=== PATIENT | female | born 1945 | race Caucasian/White ===

== ENCOUNTER 2024-12-05 19:35 | Emergency (ER) | payer MEDICARE, SELFPAY ==
[2024-12-05 19:37] VITALS: BP 181/71; PULSE 65; RESP 16; TEMP 36.4; O2SAT 97; BMI 37.1
--- NOTE | 2024-12-05 20:37 | ECG_ITS ---
[facility] Test Date: 2024-12-05 Pat Name: Mila Hernández Department: Room: Gender: Female Patient Sitter: : 1945 Requested By: Brii Carter Order Number: [id number] Chelsie MD: Sherri Benítez M.D. Measurements Intervals [place] Rate: 58 P: 46 DE: 173 QRS: -4 QRSD: 88 T: 56 QT: 430 QTc: 423 Interpretive Statements SINUS BRADYCARDIA WITH FREQUENT SUPRAVENTRICULAR PREMATURE COMPLEXES SEPTAL MYOCARDIAL INFARCTION , OF INDETERMINATE AGE [40+ ms Q WAVE IN V1/V2] No previous ECG available for comparison Electronically Signed On 12-06-2024 16:34:30 CDT by Sherri Benítez M.D. [email or web address]
== END 2024-12-05 20:45 | disposition left against medical advice (07) ==
PROVIDERS: Emergency Provider Family Medicine
DX: Z53.21 Procedure and treatment not carried out due to patient leaving prior to being seen by health care provider (principal)
CPT/HCPCS: 93005

== ENCOUNTER 2025-01-12 12:52 | Emergency (ER) | payer MEDICARE, SELFPAY ==
--- OUTSIDE RECORDS SUMMARY | 2025-01-12 12:56 | XMS_ITS | Clinical Summary ---
Author Organization [facility] Address [address] Herrera: Epic Prelude ADT [place] [id number] Care Team Providers Care Nurse Ortho Name Role Phone Unavailable Primary Care Provider Unavailabl e Family History Medical History Relation Name Comments Healthy Daughter 1 Healthy Daughter 2 Hypertension Father Lung Cancer Father Stroke Father Colon Cancer Maternal Aunt Cancer Maternal Grandfather Cancer Maternal Grandmother cervica l Colon Cancer Maternal Grandmother Heart Disease Mother Respiratory Disease Mother Unknown Paternal Grandfather Diabetes Paternal Grandmother Hypertension Sister 1 Healthy Son Relation Name Status Comments Daughter 1 Alive Daughter 2 Alive Father Maternal Aunt Maternal Grandfather Maternal Grandmother Mother Paternal Grandfather Paternal Grandmother Sister 1 Alive Sister 2 Alive Son Alive Social History Tobacco Use Types Packs/Day Years Used Date Smoking Tobacco: Never Smokeless Tobacco: Never Alcohol Use Standard Drinks/Week Comments Yes 5 (1 standard drink = 0.6 oz pur e alcohol) Comments Unknown Sex and Gender Information Value Date Recorded Sex Assigned at Not on file Legal Sex Female 12:19 AM 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 Gender Identity Not on file Sexual Orientation Not on file Last Filed Vital Signs Vital Sign Reading Time Taken Comments Blood Pressure 130/80 08/24/2018 9:59 AM 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 Pulse 67 08/24/2018 9:59 AM 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 Temperature 36.7 C (98 F) 08/24/2018 9:59 AM 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 Respiratory Rate 20 04/26/2018 10:12 AM CDT Oxygen Saturation - - Inhaled Oxygen Concentration - - Weight 86.2 kg (190 lb) 08/24/2018 9:59 AM 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 Height 152.4 cm (5') 08/24/2018 9:59 AM 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 Body Mass Index 37.11 08/24/2018 9:59 AM 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 Plan of Treatment Health Maintenance Due Date Last Done Comments DTAP/TDAP/TD VACCINES (1 - Tdap) 1965 PNEUMOCOCCAL VACCINE 50+ YEA RS (1 of 1 - PCV) 1996 ZOSTER VACCINE (1 of 2) 1996 RSV VACCINE (60+ or ) (1 - 1-dose 75+ series) 2021 OSTEOPOROSIS SCREENING 09/08/2021 7, 09/08/2016, 04/06/2015, Additional history exists INFLUENZA VACCINE (#1) 2024 COLORECTAL SCREENING Discontinued 03/21/2017, 03/21/2017, 03/20/2012, Additional history exists Colorectal Cancer Screening Discontinued FIT-DNA Q 3 years Discontinued FIT/FOBT Q 1 year Discontinued Flex Sig/CT Colonography Q 5 years Discontinued Medical Devices Implanted Type 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 Shelf Expiration Date Model / Serial / Lot Capsule Ph Testing Pratt [id number] - [id number] Implanted:Qty: 1 on 03/21/2017 by Jose G Man MD Other [employer] 12/19/2017 [id number] / / [id number] Description:ID# [id number] Procedures Procedure Name Priority Date/Time Associated Diagnosis Comments ENDOSCOPY, COLON, SCREENING 03/21/2017 12:00 AM CDT XR DEXA BONE DENSITY AXIAL 1 OR MORE SITES Routine 09/08/2016 2:14 PM 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 Asymptomatic menopausal state Screening for osteoporosis from Last 3 Months or Most Recently Relevant to Health Maintenance Results * ENDOSCOPY, COLON, SCREENING (03/21/2017 12:00 AM CDT) Jose G Man MD GI PROCEDURE ORDERABLES Edited Result - Final * XR DEXA BONE DENSITY AXIAL 1 OR MORE SITES (09/08/2016 2:14 PM 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) Anatomical Region Laterality Modality Other Narrative 09/08/2016 2:18 PM 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 PROCEDURE: XR DEXA BONE DENSITY AXIAL 1 OR MORE SITES REASON FOR STUDY: Asymptomatic menopausal state, Screening for osteoporosis PROCEDURE DATE: 09/08/2016 2:14 PM FINDINGS: The lumbar spine bone mineral density from L1-L4 is 1.286 with a T-score of 2.2 and a Z-score of 4.3. This is consistent with normal bone mineral density. Proximal femur bone mineral density total is 1.050 with a T-score 0.9 and a Z-score 2.4. This is consistent with normal bone mineral density. Femoral neck bone mineral density is 0.806 with a T-score of -0.4 and a Z-score of 1.4. The World Health Organization FRAX score sheet shows a T-score of -0.4 with the ten-year probability of major osteoporotic fracture at 11% and a hip fracture of 0.7%. The [place] National Osteoporosis Foundation guidelines recommend offering treatment choices to anyone with low bone density also called osteopenia whose FRAX score for hip fractures is 3% or greater or other bone fractures greater than 20% Procedure Note Kaden Peter MD - 09/09/2021 PROCEDURE: XR DEXA BONE DENSITY AXIAL 1 OR MORE SITES REASON FOR STUDY: Asymptomatic menopausal state, Screening for osteoporosis PROCEDURE DATE: 09/08/2016 2:14 PM FINDINGS: The lumbar spine bone mineral density from L1-L4 is 1.286 with a T-score of 2.2 and a Z-score of 4.3. This is consistent with normal bone mineral density. Proximal femur bone mineral density total is 1.050 with a T-score 0.9 and a Z-score 2.4. This is consistent with normal bone mineral density. Femoral neck bone mineral density is 0.806 with a T-score of -0.4 and a Z-score of 1.4. The World Health Organization FRAX score sheet shows a T-score of -0.4 with the ten-year probability of major osteoporotic fracture at 11% and a hip fracture of 0.7%. The US National Osteoporosis Foundation guidelines recommend offering treatment choices to anyone with low bone density also called osteopenia whose FRAX score for hip fractures is 3% or greater or other bone fractures greater than 20% us Danii Cadet NP DIAGNOSTIC IMAGING ORDERAB LES Final Result from Last 3 Months or Most Recently Relevant to Health Maintenance
[2025-01-12 12:57] VITALS: BP 130/80; PULSE 72; TEMP 36.4; O2SAT 98; BMI 37.8
--- NOTE | 2025-01-12 13:46 | W.ED.FEMALGU ---
HPI - Female Genitourinary General: Chief complaint: Urogenital-Female Stated complaint: urinary Time Seen by Provider: 01/12/25 13:22 History of Present Illness: Chief complaint is blood in the urine and urinary burning and frequency. Patient had urinary symptoms about 10 days ago and was seen in urgent care and had a urinalysis showing UTI and started on Macrobid. She finished the Macrobid about 2 days ago. She states that she still has some mild burning with urination towards the end of the Macrobid and then after running out of the Macrobid she has had some increased burning and frequency of urination again and she has developed some right flank pain. No fever. No headache or chest pain or shortness of breath that is new for her. No vomiting. No abdominal pain. No numbness or weakness in her legs. She has a history of congestive heart failure and always has some shortness of breath. This morning she had some blood in her urine so they decided come get checked out again Related Data Previous Rx's ?Medication ?Instructions ?Recorded cefdinir 300 mg capsule 300 mg PO BID 10 days #20 caps 01/12/25 Allergies Allergy/AdvReac Type Severity Reaction Status Date / Time Penicillins Allergy Unknown Verified 01/12/25 13:03 Physical Exam Narrative: EXAM NARRATIVE: Alert talkative no acute distress. Neck is supple. Moist mucous membranes. No rash on exposed areas. Normal conjunctiva. Pupils are equally reactive. Lung sounds are clear normal respiratory pattern. Heart regular rhythm. Abdomen soft nontender. No CVA tenderness. Negative for tenderness over the vertebral bodies of the back. She moves freely with no apparent pain with movement. She has intact motor and sensation in her legs. Speech is clear. She is alert and oriented x 4. Course Vital Signs: Vital signs: Vital Signs Temperature 97.6 F 01/12/25 12:57 Pulse Rate 72 01/12/25 12:57 Blood Pressure 130/80 01/12/25 12:57 Pulse Oximetry 98 01/12/25 12:57 Oxygen Delivery Me thod Room Air 01/12/25 12:57 MDM - Female Medical Decision Making Patient presents nontoxic-appearing talkative with some continued burning and frequency of urination and some blood in her urine this morning. She does have some right flank pain that is developed over the last few days. She was on Macrobid for an E. coli UTI. The daughter called the urgent care where she had her urinalysis and they reported the results to me over the phone that she had E. coli that was sensitive to everything except for Cipro and Levaquin. I advised patient we will get repeat urinalysis. Her Macrobid may have not been adequate to eliminate the infection. Will get a CT scan to evaluate for obstructive stone and check CBC CMP and urinalysis. Not suggestive of dissection. Not suggestive of AAA. She had no abdominal tenderness and negative Nelson's and not suggestive of acute cholecystitis or biliary colic. UTI is most probable cause. History is obtained from the patient and from the daughter. The daughter states she does have a history of kidney stones. Patient's creatinine is elevated. The patient tells me that her creatinine normally runs high. The patient's white count was normal. BUN is also elevated consistent with dehydration. Bicarb also low consistent dehydration. I advised adequate oral intake. She has a history of CHF so will need close balance of adequate hydration. Urinalysis consistent with significant UTI. CT ab pelvis without contrast showed bilateral renal lesions which could represent cancer and I discussed with the patient and daughter the importance of follow-up for cancer screening and further testing. Patient has a history of unknown reaction which she thinks was a rash to penicillin long time ago in the past. She is not aware of any issue with cephalosporins. I advised her balance risk and benefit and alternative treatment options. Will prescribe cefdinir cautiously with close outpatient follow-up and return instructions. Will give her a dose here. Advised limits of ED evaluation and signs symptoms of worsening to watch and return for. Of note patient daughter mentioned that she had a history of a blood clot in the past and used to be on anticoagulation when I was asking them about blood thinners. She states that she had stopped taking it. I advised the importance of doing this with her doctor and close follow-up to discuss this with your doctor. Patient states she has no chest pain and no new shortness of breath or symptoms that she has not had chronically and does not suspect any new trouble breathing or symptoms to suggest acute PE. Patient states she is not currently taking her furosemide. She has been traveling and had not had much to drink the last few days because she does not want to urinate a lot when she is traveling. I advised the importance of adequate oral hydration. She is not vomiting feels comfortable with continued oral hydration outpatient. I advised contacting her doctor to recheck her kidney function promptly and advised signs of allergic reaction or dehydration or worsening to watch and return for. Lab Data 01/12/25 13:53 01/12/25 13:53 Radiology Impressions Abdomen/Pelvis CT 01/12/25 13:54 IMPRESSION: 1. No obstructive uropathy. No stones. 2. 11 cm left upper pole renal cyst is benign but may be symptomatic. 3. 16 mm intermediate density right renal lesion. 15 mm intermediate density left renal lesion. Complicated cyst versus solid neoplasm. Recommend non-emergent MRI without and with contrast or non-emergent CT without and with contrast. MRI is preferred for masses under 1.5 cm. 4. Incidental findings above. COMMENTS: Consistent with the [place] [employer]'s Incidental Findings Committee white paper (J Am Kemal Radiol 2018): Any incidental renal lesion less than 1 cm or classified as too small to characterize, or any incidental cystic renal lesion characterized as simple-appearing, is likely benign. No follow-up imaging is recommended for these lesions per consensus recommendations based on imaging criteria. Laboratory Results WBC 8.01 10^3/uL (3.29-11.43) 01/12/25 13:53 RBC 4.51 10^6/uL (3.85-5.65) 01/12/25 13:53 Hgb 12.30 g/dL (11.27-16.99) 01/12/25 13:53 Hct 39.3 % (36-47) 01/12/25 13:53 MCV 87.1 fl (85-98) 01/12/25 13:53 MCH 27.3 pg (27-33) 01/12/25 13:53 MCHC 31.3 g/dL (30-55) 01/12/25 13:53 RDW 17.9 % (12.1-15.1) H 01/12/25 13:53 Plt Count 212 10^3/cmm (157-399) 01/12/25 13:53 MPV 9.4 fL (7.4-10.4) 01/12/25 13:53 Neut % (Auto) 81.3 % 01/12/25 13:53 Lymph % (Auto) 6.4 % 01/12/25 13:53 [place] % (Auto) 7.0 % 01/12/25 13:53 Eos % (Auto) 4.0 % 01/12/25 13:53 Baso % (Auto) 0.9 % 01/12/25 13:53 Neut # (Auto) 6.52 10^3/uL (1.8-7.7) 01/12/25 13:53 Lymph # (Auto) 0.5 10^3/uL (0.8-4.8) L 01/12/25 13:53 [place] # (Auto) 0.6 10^3/uL (0.2-0.9) 01/12/25 13:53 Eos # (Auto) 0.3 10^3/uL (0.0-0.8) 01/12/25 13:53 Baso # (Auto) 0.1 10^3/uL (0.0-0.1) 01/12/25 13:53 Nucleated RBC % (auto) 0 % 01/12/25 13:53 Nucleated RBCs # 0.0 /100WBC 01/12/25 13:53 Sodium 137 mmol/L (136-145) 01/12/25 13:53 Potassium 4.6 mmol/L (3.5-5.1) 01/12/25 13:53 Chloride 105 mmol/L (98-107) 01/12/25 13:53 Carbon Dioxide 18 mmol/L (22-29) L 01/12/25 13:53 Anion Gap 18.6 (5-19) 01/12/25 13:53 BUN 39 mg/dL (8-23) H 01/12/25 13:53 Creatinine 1.7 mg/dL (0.5-0.9) H 01/12/25 13:53 GFR Calculation Not Reportable 01/12/25 13:53 Glucose 94 mg/dL (65-115) 01/12/25 13:53 Calculated Osmolality 293 mOsm/kg (285-295) 01/12/25 13:53 Calcium 9.1 mg/dL (8.5-10.5) 01/12/25 13:53 Total Bilirubin 0.3 mg/dL (0.15-1.2) 01/12/25 13:53 AST 12 U/L (0-32) 01/12/25 13:53 ALT 7 U/L (0-33) 01/12/25 13:53 Alkaline Phosphatase 88 U/L (35-105) 01/12/25 13:53 Total Protein 6.6 g/dL (6.6-8.7) 01/12/25 13:53 Albumin 3.6 g/dL (3.5-5.2) 01/12/25 13:53 Globulin 3.0 g/dL (1.3-4.6) 01/12/25 13:53 Lipase 57 U/L (13-60) 01/12/25 13:53 Urine Color Red (Yellow) A 01/12/25 13:47 Urine Appearance Turbid (CLEAR) A 01/12/25 13:47 Urine pH 5.5 (5-7) 01/12/25 13:47 Ur Specific [place] 1.019 (1.005-1.030) 01/12/25 13:47 Urine Protein 3+ (Negative) A 01/12/25 13:47 Urine Glucose (UA) Negative (Normal) 01/12/25 13:47 Urine Ketones Negative (Negative) 01/12/25 13:47 Urine Blood 3+ (Negative) A 01/12/25 13:47 Urine Nitrate Positive (Negative) A 01/12/25 13:47 Urine Bilirubin 1+ (Negative) H 01/12/25 13:47 Urine Urobilinogen 1.0 mg/dL (Negative) 01/12/25 13:47 Ur Leukocyte Esterase 3+ (Negative) A 01/12/25 13:47 Urine RBC >100 /hpf (0-2) H 01/12/25 13:47 Urine WBC >100 /hpf (0-5) H 01/12/25 13:47 Ur Squamous Epith Cells 6-10 /hpf (0-5) 01/12/25 13:47 Amorphous Sediment Not Reportable 01/12/25 13:47 Urine Bacteria 4+ /hpf (NONE) H 01/12/25 13:47 Hyaline Casts 1.45 /lpf 01/12/25 13:47 All radiology interpretation(s) finalized by discharge Discharge Plan Discharge Patient Disposition: Home Clinical Impression: Urinary tract infection Condition: Stable Prescriptions: New cefdinir 300 mg capsule 300 mg PO BID 10 Days Qty: 20 0RF Discharge Orders: Discharge ED (Routine); Ordered 01/12/25 Ordered By: Nathaniel Rios Activity Restrictions/Additional Instructions: Follow-up on your test results with your doctor including the renal lesions for cancer screening to evaluate for cancer on your kidney. Follow-up on your kidney function test and other lab results with your doctor. Make sure to drink plenty of fluid. Please come back if weakness in your arms or legs, fever, vomiting, getting worse instead of better, any concerns. Make sure to follow-up on all your test results with your doctor. Please recheck with your doctor this coming week. Print Language: Syrian Coding Level of Care Code ED Per Diem Physical Therapist for Keith Garza
--- NOTE | 2025-01-12 13:54 | CTR_ITS ---
PROCEDURE INFORMATION: Exam: CT Abdomen And Pelvis Without Contrast Exam date and time: 01/12/2025 2:13 PM Age: 79 years old Clinical indication: Abdominal pain; Flank; Right; Prior surgery; Surgery date: 6+ months; Surgery type: Appy; Additional info: Right flank pain TECHNIQUE: Imaging protocol: Computed tomography of the abdomen and pelvis without contrast. Radiation optimization: All CT scans at this facility use at least one of these dose optimization techniques: automated exposure control; mA and/or kV adjustment per patient size (includes targeted exams where dose is matched to clinical indication); or iterative reconstruction. COMPARISON: No relevant prior studies available. RADIATION DOSE METRICS: Total DLP (mGy-cm): 846.14 FINDINGS: Lungs: Lung bases are clear. Diaphragm: There is a moderate size sliding-type hiatal hernia. Liver: There are simple cysts in the liver measuring up to 2.3 cm. No liver mass. Gallbladder and biliary ducts: The gallbladder is normal. There is no biliary dilation. Pancreas: There is mild atrophy of the pancreas. Spleen: The spleen is unremarkable. Adrenal glands: The adrenal glands are unremarkable. Kidneys and ureters: There is no hydronephrosis or stones on the right. There is an intermediate density 17 mm nodule or complicated cyst in the right kidney on axial series 4, image 46. There is a simple cyst exophytic from the upper pole of the left kidney measuring 11.1 x 8.0 cm there is a 15 mm intermediate density left renal lesion visible on axial series 4, image 47. There are multiple simple parapelvic cysts in the left kidney. There is no hydronephrosis or stones on the left. There are small simple parapelvic cyst in the right kidney. Stomach and bowel: The stomach is nondistended, limiting assessment of wall thickness. The small bowel is nondilated. There is pancolonic diverticulosis which is mild proximally and severe distally. There is no sign of diverticulitis. Appendix: The appendix is not visible. Intraperitoneal space: There is no free air or significant intraperitoneal free fluid. Vasculature: There is mild aortic atherosclerotic disease. Lymph nodes: There is no lymphadenopathy in the retroperitoneum, mesentery, pelvis or inguinal regions. Urinary bladder: The urinary bladder is unremarkable. Reproductive: The uterus is unremarkable. There is no adnexal mass or large cyst. Bones/joints: There is moderate degenerative disease in the lumbar spine. The pelvis and hips are unremarkable. Soft tissues: The abdominal wall is intact. Mild diffuse atrophy of the pelvic musculature. CT/CT abdomen pelvis wo con [id number] IMPRESSION: 1. No obstructive uropathy. No stones. 2. 11 cm left upper pole renal cyst is benign but may be symptomatic. 3. 16 mm intermediate density right renal lesion. 15 mm intermediate density left renal lesion. Complicated cyst versus solid neoplasm. Recommend non-emergent MRI without and with contrast or non-emergent CT without and with contrast. MRI is preferred for masses under 1.5 cm. 4. Incidental findings above. COMMENTS: Consistent with the [place] [employer]'s Incidental Findings Committee white paper (J Am Kemal Radiol 2018): Any incidental renal lesion less than 1 cm or classified as too small to characterize, or any incidental cystic renal lesion characterized as simple-appearing, is likely benign. No follow-up imaging is recommended for these lesions per consensus recommendations based on imaging criteria.
[2025-01-12 14:03] LABS: Basophils # 0.1 10^3/uL (0.0-0.1); Basophils % 0.9 %; Eosinophils # 0.3 10^3/uL (0.0-0.8); Hematocrit 39.3 % (36-47); Lymphocytes # 0.5 10^3/uL (0.8-4.8); Lymphocytes % 6.4 %; Mean Corpuscular HGB Conc 31.3 g/dL (30-55); Mean Corpuscular Hemoglobin 27.3 pg (27-33); Mean Corpuscular Volume 87.1 fl (85-98); Mean Platelet Volume 9.4 fL (7.4-10.4); Monocytes # 0.6 10^3/uL (0.2-0.9); Neutrophils # 6.52 10^3/uL (1.8-7.7); Neutrophils % 81.3 %; Nucleated Red Blood Cells % 0 %; Platelet Count 212 10^3/cmm (157-399); Red Blood Count 4.51 10^6/uL (3.85-5.65); Red Cell Distribution Width 17.9 % (12.1-15.1); White Blood Count 8.01 10^3/uL (3.29-11.43)
[2025-01-12 14:06] LABS: Bilirubin Urine 1+ (Negative); Blood Urine 3+ (Negative); Glucose Urine UA Negative (Normal); Ketones Urine Negative (Negative); Leukocyte Esterase Urine 3+ (Negative); Nitrate Urine Positive (Negative); Protein Urine 3+ (Negative); Specific Gravity, Urine 1.019 (1.005-1.030); Urine Appearance Turbid (CLEAR); pH Urine 5.5 (5-7)
[2025-01-12 14:11] LABS: Add Urine Microscopic? YES; Bacteria Urine 4+ /hpf; Hyaline Casts Urine 1.45 /lpf; RBC Urine >100 /hpf (0-2); WBC Urine >100 /hpf (0-5)
[2025-01-12 14:23] LABS: UA Slide Review UA Slide Review Perf; Urine Color Red (Yellow)
[2025-01-12 14:24] LABS: Add Urine Culture? Yes
[2025-01-12 14:45] LABS: Alanine Aminotransferase 7 U/L (0-33); Albumin Level 3.6 g/dL (3.5-5.2); Alkaline Phosphatase 88 U/L (35-105); Anion Gap 18.6 (5-19); Aspartate Amino Transferase 12 U/L (0-32); Blood Urea Nitrogen 39 mg/dL (8-23); Calcium 9.1 mg/dL (8.5-10.5); Carbon Dioxide 18 mmol/L (22-29); Chloride 105 mmol/L (98-107); Glucose 94 mg/dL (65-115); Lipase 57 U/L (13-60); Osmolality Calculated 293 mOsm/kg (285-295); Potassium 4.6 mmol/L (3.5-5.1); Sodium 137 mmol/L (136-145); Total Bilirubin 0.3 mg/dL (0.15-1.2); Total Protein 6.6 g/dL (6.6-8.7)
[2025-01-12 16:12] VITALS: BP 114/69; PULSE 51; O2SAT 99
== END 2025-01-12 16:14 | disposition home or self-care (01) ==
PROVIDERS: Emergency Provider Emergency Medicine
DX: N39.0 Urinary tract infection, site not specified (principal)
CPT/HCPCS: 74176; 80053; 81001; 83690; 85025; 87077; 87086; 87186; 99284

== ENCOUNTER → 2025-01-16 13:48 | Outpatient (BNVA) | payer MEDICARE, SELFPAY | PROVIDERS: Visit Provider Internal Medicine | DX: I11.0 Hypertensive heart disease with heart failure (principal); I50.20 Unspecified systolic (congestive) heart failure; E78.5 Hyperlipidemia, unspecified; R07.9 Chest pain, unspecified; R06.02 Shortness of breath | CPT/HCPCS: 93005; 99204 ==

== ENCOUNTER 2025-02-18 09:46 | Outpatient (CLI) | payer MEDICARE, SELFPAY ==
--- NOTE | 2025-02-18 10:00 | USCV_ITS ---
Mila Hernández Age: 79 Gender: F : 1945 Exam Date: 02/18/2025 10:20 Ordering Phys: Henry Calix M.D ([email or web address]) Technologist: MELLY [place] [facility] [place]: SoB BP: 128 / 78 HR: 56 Rhythm: Sinus Technical Quality: Adequate MEASUREMENTS (Male / Female) Normal Values 2D ECHO LV Diastolic Diameter PLAX 4.6 cm 4.2 - 5.9 / 3.9 - 5.3 cm IVS Diastolic Thickness 1.1 cm 0.6 - 1.0 / 0.6 - 0.9 cm IVS Systolic Thickness 1.4 cm LVPW Diastolic Thickness 1.3 cm 0.6 - 1.0 / 0.6 - 0.9 cm LVPW Systolic Thickness 1.8 cm LVOT Diameter 2.0 cm LV Ejection Fraction 2D Teich 57.9 % LV Ejection Fraction MOD 4C 64.7 % LV Ejection Fraction MOD 2C 63.5 % LV Ejection Fraction 2C AL 67.0 % LA Diameter 3.5 cm RA Systolic Volume 4C AL 31.1 ml RA Systolic Volume 4C MOD 30.1 ml LA Sys Volume AL 49.9 cm cubed LA Sys Volume Index AL 25.8 cm cubed/m squared Aorta at Sinotubular Diameter 2.6 cm M-MODE LA Ao Ratio MM 1.2 AV Cusp Separation MM 1.6 cm DOPPLER AV Peak Velocity 127.0 cm/s LVOT Peak Velocity 99.0 cm/s AV Area Cont Eq vti 2.4 cm squared AV Area Cont Eq pk 2.4 cm squared MV Peak Velocity 85.0 cm/s MV Area PHT 4.4 cm squared Mitral E to A Ratio 0.7 TV Peak Velocity 164.0 cm/s TR Peak Velocity 253.0 cm/s TR Peak Gradient 25.6 mmHg TV Peak E Velocity 53.0 cm/s PV Peak Velocity 98.0 cm/s FINDINGS Left Ventricle Level is normal in size. LV systolic function is normal with EF of 60 to 65%. No regional wall motion abnormalities are seen. Grade 1 diastolic dysfunction Right Ventricle Normal in size and function Right Atrium Normal in size Left Atrium Normal in size Mitral Valve Structurally normal mitral valve. Mild mitral regurgitation. Aortic Valve Structurally normal aortic valve. No significant stenosis or regurgitation. Tricuspid Valve Mild tricuspid regurgitation. Insufficient TR jet to calculate RVSP Pulmonic Valve Not well-visualized. Pericardium Normal Aorta Normal in size IVC Not visualized CONCLUSIONS LV systolic function is normal with EF of 60-65% Grade 1 diastolic dysfunction Mild mitral regurgitation Mild tricuspid regurgitation. No comparison studies are available Henry Calix MD (Electronically Signed) Final Date: 19 February 2025 11:00 S
== END 2025-02-18 09:47 | disposition home or self-care (01) ==
LOC: RAD 09:47
PROVIDERS: PCP Family Medicine; Visit Provider Internal Medicine
DX: R06.02 Shortness of breath (principal); I34.0 Nonrheumatic mitral (valve) insufficiency; I36.1 Nonrheumatic tricuspid (valve) insufficiency; I50.30 Unspecified diastolic (congestive) heart failure
CPT/HCPCS: 93306

== ENCOUNTER → 2025-04-15 10:27 | Outpatient (BNVA) | payer MEDICARE, SELFPAY | PROVIDERS: PCP Family Medicine; Visit Provider Emergency Medicine | DX: I50.20 Unspecified systolic (congestive) heart failure (principal); I50.9 Heart failure, unspecified; R07.9 Chest pain, unspecified | CPT/HCPCS: 80053; 83880; 85025 ==

== ENCOUNTER → 2025-05-05 08:50 | Outpatient (BNVA) | payer MEDICARE, SELFPAY | PROVIDERS: PCP Family Medicine; Visit Provider Emergency Medicine | DX: R39.9 Unspecified symptoms and signs involving the genitourinary system (principal) | CPT/HCPCS: 81000; 87086 ==

== ENCOUNTER 2025-05-22 07:39 | Outpatient (CLI) | payer MEDICARE, SELFPAY ==
--- NOTE | 2025-05-22 07:30 | CT_ITS ---
WS: [id number] CT HEAD TECHNIQUE: Noncontrast CT of the head obtained from the skullbase to the vertex. CLINICAL INFORMATION: dementia COMPARISON: None. DLP: 987.[address] scans at [facility] use at least one of these dose optimization techniques: automated exposure control; mA and/or kV adjustment per patient size (includes targeted exams where dose is matched to clinical indication); or iterative reconstruction. FINDINGS: No evidence of intracranial hemorrhage or mass effect. Ventricular system and basal cisterns are patent. Moderate small vessel changes with moderate parenchymal volume loss. No extra-axial fluid collections. No evidence of mass or mass effect. Vascular calcification. Tiny chronic lacunar infarct RIGHT cerebellum. RIGHT maxillary sinusitis. Mastoid air cells are well aerated. CT/CT head wo con* [id number] IMPRESSION: 1. No evidence of intracranial hemorrhage or mass effect. 2. RIGHT maxillary sinusitis. 3. Moderate small vessel changes with moderate parenchymal volume loss. 4. Vascular calcification. 5. No acute intracranial findings.
== END 2025-05-22 07:40 | disposition home or self-care (01) ==
LOC: RAD 07:40
PROVIDERS: PCP Family Medicine; Visit Provider Family Medicine
DX: F03.90 Unspecified dementia, unspecified severity, without behavioral disturbance, psychotic disturbance, mood disturbance, and anxiety (principal); J32.0 Chronic maxillary sinusitis; G93.89 Other specified disorders of brain; Z86.73 Personal history of transient ischemic attack (TIA), and cerebral infarction without residual deficits
CPT/HCPCS: 70450

== ENCOUNTER → 2025-05-23 12:48 | Outpatient (BNVA) | payer MEDICARE, SELFPAY | PROVIDERS: PCP Family Medicine | DX: R30.0 Dysuria (principal); R39.9 Unspecified symptoms and signs involving the genitourinary system | CPT/HCPCS: 81000; 87086 ==

== ENCOUNTER → 2025-05-29 10:01 | Outpatient (BNVA) | payer MEDICARE, SELFPAY | PROVIDERS: PCP Family Medicine; Visit Provider Family Medicine | DX: I50.20 Unspecified systolic (congestive) heart failure (principal); F03.90 Unspecified dementia, unspecified severity, without behavioral disturbance, psychotic disturbance, mood disturbance, and anxiety | CPT/HCPCS: 80053; 83880; 85025 ==

== ENCOUNTER 2025-05-31 17:24 | Inpatient (IN) | payer MEDICARE, SELFPAY ==
--- OUTSIDE RECORDS SUMMARY | 2025-05-31 17:29 | XMS_ITS | Clinical Summary ---
Author Organization [facility] Address [address] Herrera: Epic Prelude ADT JEY BALDWIN [id number] Care Team Providers Care Billing Rep Name Role Phone Unavailable Primary Care Provider Unavailabl e Allergies Active Allergy Reactions Criticality Noted Date Comments Penicillins Rash Low 04/02/2025 Medications carvediloL (COREG) 25 mg tablet Take 25 mg by mouth every 12 hours. Active citalopram (CeleXA) 20 mg tablet Take 20 mg by mouth daily at bedtime. Active escitalopram oxalate (LEXAPRO) 20 mg tablet Take 20 mg by mouth daily. Active omeprazole (PriLOSEC) 40 mg Capsule, Delayed Release(E.C.) Take 40 mg by mouth daily. Active spironolactone (ALDACTONE) 25 mg tablet Take 25 mg by mouth daily. Active MELATONIN ORAL Take by mouth. Active IRON, CARBONYL ORAL Take by mouth. Activ e potassium CITRATE (UROCIT-K) 15 mEq Extended Release tablet Take 15 mEq by mouth every 12 hours. Active trospium (SANCTURA) 20 mg Tablet Take 1 Tablet (20 mg) by mouth 2 times daily. 60 Tablet 11 5 Active losartan (COZAAR) 100 mg tablet Take 1 Tablet (100 mg) by mouth daily. 30 Tablet 5 Active estradioL (ESTRACE) 0.01% (0.1 mg/g) vaginal cream 1 Gram by See Admin Instructions route daily. 42.5 Gram 11 5 Active Active Problems No known active problems Encounters Date Type Department Care Team Description 05/14/2025 External Device Data STL ABSTRACTION Provider, Abstract 05/13/2025 External Device Data STL ABSTRACTION Provider, Abstract 04/28/2025 Refill [facility] [place] [address] [place] [address] Amber Dai NP 04/03/2025 Orders Only [facility] [place] [address] [place] [address] Rae Nettles RN 04/02/2025 2:00 PM CDT Office Visit [facility] [place] [facility] [address] [place] [address] Amber Dai NP Stress incontinence (Primary Dx) 03/18/2025 External Device Data STL ABSTRACTION Provider, Abstract 03/04/2025 External Device Data STL ABSTRACTION Provider, Abstract from Last 3 Months Family History Medical History Relation Name Comments [...] on file Legal Sex Female 12:19 AM RIG SITE ENGINEER Gender Identity Not on file Sexual Orientation Not on file Last Filed Vital Signs Vital Sign Reading Time Taken Comments Blood Pressure 130/80 08/24/2018 9:59 AM RIG SITE ENGINEER Pulse 67 08/24/2018 9:59 AM RIG SITE ENGINEER Temperature 36.7 C (98 F) 08/24/2018 9:59 AM RIG SITE ENGINEER Respiratory Rate 20 04/26/2018 10:12 AM CDT Oxygen Saturation - - Inhaled Oxygen Concentration - - Weight 86.2 kg (190 lb) 08/24/2018 9:59 AM RIG SITE ENGINEER Height 152.4 cm (5') 08/24/2018 9:59 AM RIG SITE ENGINEER Body Mass Index 37.11 08/24/2018 9:59 AM RIG SITE ENGINEER Plan of Treatment Upcoming Encounters Date Type Department Care Team (Late st Contact Info) Description 07/02/2025 2:30 PM RIG SITE ENGINEER Office Visit [facility] [place] [address] [place] [address] Amber Dai NP [address] [place] [address] Health Maintenance Due Date Last Done Comments RSV VACCINE (60+ or ) (1 - 1-dose 75+ series) 2021 INFLUENZA VACCINE (#1) 2025 , 04/12/2021, 04/28/2020, Additional history exists COVID-19 Vaccine (2024-2 6 season) 2025 03/11/2021, 10/22/2020, 09/09/2020 OSTEOPOROSIS SCREENING 05/30/2029 , 05/30/2024, 09/01/2021, Additional history exists DTAP/TDAP/TD VACCINES (2 - T d or Tdap) 04/26/2034 04/26/2024 PNEUMOCOCCAL VACCINE 50+ YEARS Completed 04/22/2016 , 01/11/2013 ZOSTER VACCINE Completed 07/20/2021, 04/17, 04/16/2017, Additional history exists COLORECTAL SCREENING Discontinued 04/22/2024, 03/21/2017, 03/21/2017, Additional history exists Colorectal Cancer Screening Discontinued FIT-DNA Q 3 years Discontinued FIT/FOBT Q 1 year Discontinued Flex Sig/CT Colonography Q 5 years Discontinued Medical Devices Implanted Type Area Orderly Device Identifier Shelf Expiration Date Model / Serial / Lot Capsule Ph Testing Pratt [id number] - [id number] Implanted:Qty: 1 on 03/21/2017 by Jose G Man MD Other [employer] 12/19/2017 [id number] / / [id number] Description:ID# [id number] Procedures Procedure Name Priority Date/Time Associated Diagnosis Comments POC URINALYSIS DIPSTICK AUTOMATED Routine 04/02/2025 3:09 PM CDT ENDOSCOPY, COLON, SCREENING 03/21/2017 12:00 AM CDT XR DEXA BONE DENSITY AXIAL 1 OR MORE SITES Routine 09/08/2016 2:14 PM RIG SITE ENGINEER Asymptomatic menopausal state Screening for osteoporosis from Last 3 Months or Most Recently Relevant to Health Maintenance Results * POC URINALYSIS DIPSTICK AUTOMATED (04/02/2025 3:09 PM CDT) COLOR UA Yellow Pale to Dark Yellow 04/02/2025 3:09 PM CDT [facility] UA Clear Clear 04/02/2025 3:09 PM CDT [facility] GLUCOSE UA Negative Negative 04/02/2025 3:09 PM CDT [facility] BILIRUBIN UA Negative Negative 04/02/2025 3:09 PM CDT [facility] KETONES UA Negative Negative 04/02/2025 3:09 PM CDT [facility] BLOOD UA Negative Negative 04/02/2025 3:09 PM CDT [facility] PH UA 6.0 5.0 - 8.0 04/02/2025 3:09 PM CDT [facility] PROTEIN UA Negative Negative 04/02/2025 3:09 PM CDT [facility] UROBILINOGEN UA 0.2 <2.0 mg/dL 3:09 PM CDT [facility] NITRITE UA Negative Negative 04/02/2025 3:09 PM CDT [facility] LEUKOCYTE ESTERASE UA Negative Negative 04/02/2025 3:09 PM CDT [facility] GRAVITY UA POC 1.015 1.000 - 1.030 04/02/2025 3:09 PM CDT [facility] Urine 04/02/2025 3:09 PM CDT 04/02/2025 3:12 PM CDT us Amber Dai NP POINT OF CARE TESTING Final Result [facility] UROLOGY JAQUAN WALLER# [id number] [address] [place] [id number], [place] * ENDOSCOPY, COLON, SCREENING (03/21/2017 12:00 AM CDT) us Jose G Man MD GI PROCEDURE ORDERABLES Edited Result - Final * XR DEXA BONE DENSITY AXIAL 1 OR MORE SITES (09/08/2016 2:14 PM RIG SITE ENGINEER) Anatomical Region Laterality Modality Other Narrative 09/08/2016 2:18 PM RIG SITE ENGINEER PROCEDURE: XR DEXA BONE DENSITY AXIAL 1 [...] or other bone fractures greater than 20% Danii Cadet NP DIAGNOSTIC IMAGING ORDERAB LES Final Result from Last 3 Months or Most Recently Relevant to Health Maintenance Insurance MEDICARE PART A AND B [facility] [id number]
[2025-05-31 17:33] VITALS: BP 171/84; PULSE 64; RESP 18; TEMP 36.6; O2SAT 95; BMI 36.9
[2025-05-31 18:21] LABS: Hematocrit 38.5 % (36-47); Hemoglobin 12.70 g/dL (11.27-16.99); Mean Corpuscular HGB Conc 33.0 g/dL (30-55); Mean Corpuscular Hemoglobin 30.2 pg (27-33); Mean Corpuscular Volume 91.7 fl (85-98); Nucleated Red Blood Cells % 0 %; Platelet Count 248 10^3/cmm (157-399); Red Blood Count 4.20 10^6/uL (3.85-5.65); White Blood Count 5.48 10^3/uL (3.29-11.43)
--- NOTE | 2025-05-31 18:27 | CTR_ITS ---
PROCEDURE INFORMATION: Exam: CT Head Without Contrast Exam date and time: 05/31/2025 6:37 PM Age: 79 years old Clinical indication: Injury or trauma; Fall; Blunt trauma (contusions or hematomas); Alteration of consciousness; Somnolence (drowsiness); Additional info: AMS fell hit head TECHNIQUE: Imaging protocol: Computed tomography of the head without contrast. Radiation optimization: All CT scans at this facility use at least one of these dose optimization techniques: automated exposure control; mA and/or kV adjustment per patient size (includes targeted exams where dose is matched to clinical indication); or iterative reconstruction. COMPARISON: CT head wo con* [id number] 05/22/2025 8:10 AM RADIATION DOSE METRICS: Total DLP (mGy-cm): 1067.58 FINDINGS: Brain: Age related diffuse parenchymal volume loss. There are bilateral periventricular white matter and centrum semiovale hypodensities, consistent with chronic ischemic small vessel disease. No recent infarct, intracranial bleed or mass effect. Cerebral ventricles: No ventriculomegaly. Pituitary gland and sella: There is a normal empty pituitary sella. Paranasal sinuses: Mucosal disease of the right maxillary sinus. Mild mucosal disease of bilateral ethmoid air cells. Mastoid air cells: Visualized mastoid air cells are well aerated. Orbital cavities: Post bilateral cataract surgery. Bones: Unremarkable. No acute fracture. Soft tissues: Unremarkable. CT/CT head wo con* [id number] IMPRESSION: No acute intracranial posttraumatic changes.
--- NOTE | 2025-05-31 18:40 | XRR_ITS ---
PROCEDURE INFORMATION: Exam: XR Chest Exam date and time: 05/31/2025 6:44 PM Age: 79 years old Clinical indication: Other: AMS TECHNIQUE: Imaging protocol: Radiologic exam of the chest. Views: 1 view. COMPARISON: CT abdomen pelvis con [id number] 01/12/2025 2:13 PM FINDINGS: Lungs: Unremarkable. No consolidation. Pleural spaces: Unremarkable. No pleural effusion. No pneumothorax. Heart/Mediastinum: A moderate hiatal hernia is present. The heart is enlarged. Vasculature: There are aortic arch calcifications. Bones/joints: Moderate degenerative disease of bilateral acromioclavicular joints. There are moderate degenerative changes of the glenohumeral joint. Post left rotator cuff surgery. Narrowing of bilateral subacromial distance consistent with chronic rotator cuff disease. XR/XR chest 1V portable [id number] IMPRESSION: 1. No acute cardiopulmonary process. 2. Moderate degenerative change in the glenohumeral joint. 3. Cardiomegaly.
[2025-05-31 18:45] LABS: Alanine Aminotransferase 30 U/L (0-33); Albumin Level 3.9 g/dL (3.5-5.2); Alkaline Phosphatase 91 U/L (35-105); Anion Gap 19.1 (5-19); Aspartate Amino Transferase 30 U/L (0-32); Blood Urea Nitrogen 49 mg/dL (8-23); Calcium 9.4 mg/dL (8.5-10.5); Carbon Dioxide 17 mmol/L (22-29); Chloride 101 mmol/L (98-107); Globulin 3.1 g/dL (1.3-4.6); Glucose 87 mg/dL (65-115); Lipase 82 U/L (13-60); Osmolality Calculated 284 mOsm/kg (285-295); Potassium 6.1 mmol/L (3.5-5.1); Sodium 131 mmol/L (136-145); Total Protein 7.0 g/dL (6.6-8.7)
[2025-05-31 18:46] LABS: Lactic Sepsis W/Reflex 0.8 mmol/L (0.5-2.2)
[2025-05-31 19:05] LABS: NT Pro B Type Natriuretic Pept 625 pg/mL (0-450)
--- NOTE | 2025-05-31 19:13 | W.ED.RECABL ---
HPI - Recheck/Abnormal Lab/Rx General: Chief Complaint: Recheck/Abnormal Lab/Rx Stated Complaint: can't drink enough water Dr refural Time Seen by Provider: 05/31/25 17:53 History of Present Illness: Patient is a 79-year-old female presenting with dehydration, altered mental status, and balance issues. Per caregiver, patient has had multiple UTIs over the past 3-4 weeks requiring different antibiotic treatments. Patient has been unable to maintain adequate fluid intake, reportedly struggling to consume enough water throughout the day despite recommendation for 3 liters daily from PCP. Recent bloodwork from showed evidence of kidney damage attributed to dehydration. Patient experienced a fall yesterday in her bedroom when her feet became tangled while getting off her bed. She struck her head on a mirror, which shattered, though reportedly did not sustain any lacerations. Caregiver notes patient has frequent falls and has been particularly unsteady today. Patient is described as being 'out of sorts' with difficulty following directions. No fever, chills, nausea, or vomiting reported. Patient had diarrhea last week which has since resolved. Patient has history of mild congestive heart failure but caregiver reports no fluid retention or significant respiratory symptoms, though patient does experience dyspnea with exertion and cannot lie flat due to breathing difficulties. Related Data Home Medications ?Medication ?Instructions ?Recorded ?Confirmed acetaminophen 325 mg tablet 325 mg PO QID PRN Pain 01/16/25 05/31/25 (Tylenol) carvedilol 25 mg tablet 37.5 mg PO BID 01/16/25 05/31/25 ferrous sulfate 325 mg (65 mg 325 mg PO EVERY OTHER DAY 01/16/25 05/31/25 iron) tablet furosemide 20 mg tablet (Lasix) 20 mg PO DAILY PRN Edema 01/16/25 05/31/25 spironolactone 25 mg tablet 12.5 mg PO DAILY 01/16/25 05/31/25 melatonin 1 mg disintegrating 0.5 mg PO BEDTIME 03/24/25 05/31/25 tablet cetirizine 10 mg tablet (Zyrtec) 10 mg PO DAILY PRN allergies 04/28/25 05/31/25 trospium 20 mg tablet 20 mg PO BID 04/28/25 05/31/25 losartan 100 mg tablet 100 mg PO DAILY 05/31/25 05/31/25 Previous Rx's ?Medication ?Instructions ?Recorded mupirocin 2 % topical ointment 1 applic topical TID 7 days #22 02/26/25 (Centany) grams nystatin 100,000 unit/gram topical 1 applic topical QID 2 weeks #60 02/26/25 powder grams nitroglycerin 0.4 mg sublingual 0.4 mg sublingual Q5M PRN chest 04/15/25 tablet pain #20 tabs escitalopram oxalate 10 mg tablet 20 mg (2 x 10 mg) PO DAILY #90 tabs 04/28/25 (Lexapro) omeprazole 40 mg capsule,delayed 40 mg PO BID #60 caps 04/28/25 release sulfamethoxazole 800 1 tab PO BID 7 days #14 tabs 05/25/25 mg-trimethoprim 160 mg tablet (Bactrim DS) vancomycin 125 mg capsule 125 mg PO Q6H 10 days #40 caps 05/25/25 memantine 10 mg tablet (Namenda) See Rx Instructions PO BID #60 tabs 05/29/25 Allergies Allergy/AdvReac Type Severity Reaction Status Date / Time Penicillins Allergy Unknown Verified 05/29/25 08:40 Review of Systems Narrative: Constitutional: No fever or chills. Patient described as 'always cold' Cardiovascular: History of mild congestive heart failure without current fluid retention Respiratory: Dyspnea with exertion, unable to lie flat due to breathing difficulties Gastrointestinal: Recent diarrhea last week, now resolved. No nausea or vomiting Genitourinary: Multiple UTIs in past 3-4 weeks Musculoskeletal: Back pain reported Neurological: Altered mental status, confusion, difficulty following commands, balance issues PFS ED PFSH: Medical History Precordial pain Nodule of kidney Moderate major depression Nephrolithiasis CKD stage 3b, GFR 30-44 ml/min GERD (gastroesophageal reflux disease) Osteoporosis Hypothyroid Izaguirre esophagus Hiatal hernia Arthritis Hypertension Chronic congestive heart failure, unspecified heart failure type Hyperlipemia Surgical History History of right ankle joint replacement Hx of total knee replacement Hx of rotator cuff surgery Family History Father Cancer Hypertension Mother Heart disease Hypertension Sister Hypertension Social History (Reviewed 05/31/25 @ 19:14 by DENISE El Smoking and tobacco/nicotine status: never used tobacco/nicotine Alcohol intake: former Substance/Drug Use: never Physical Exam Const: COMMON NORMALS: no acute distress GENERAL APPEARANCE: cooperative and frail appearing (Mildly) HENMT: COMMON NORMALS: normocephalic, atraumatic and Normal external nose present HEAD & SCALP: normocephalic and atraumatic FACE & SINUS: normal facial exam and face symmetric NOSE: Normal external nose present Eye: COMMON NORMALS: Equal, round and reactive pupils present and EOMs intact bilaterally PUPIL: Yes Equal, round and reactive pupils present Neck/C-Spine: GENERAL: Yes trachea midline Chest: CHEST: Yes Symmetrical chest wall rise Resp: COMMON NORMALS: normal respiratory effort, No retractions, No use of accessory muscles and clear to auscultation bilaterally AUSCULTATION: clear to auscultation bilaterally Cardio: COMMON NORMALS: regular rate and regular rhythm RATE: regular rate RHYTHM: regular rhythm GI: COMMON NORMALS: Normal to inspection, nondistended, normoactive bowel sounds present Extremity: COMMON NORMALS: no pedal edema Neuro: PARDEEP COMA SCALE: document GCS findings Pardeep coma scale eye opening: Spontaneous Pardeep coma scale verbal response: Confused Freedom coma scale motor response: Obey commands (Mostly) Freedom coma scale total score: 14 SENSORY EXAM: Yes extremities (intact) Psych: COMMON NORMALS: speech normal SPEECH: Yes normal speech Skin: COMMON NORMALS: no rashes or lesions noted GENERAL SKIN EXAM: no rashes or lesions noted Course Vital Signs: Vital signs: Vital Signs Temperature 98.0 F 06/01/25 15:10 Pulse Rate 72 06/01/25 15:10 Respiratory Rate 17 06/01/25 15:10 Blood Pressure 136/83 06/01/25 15:10 Pulse Oximetry 93 06/01/25 15:10 Oxygen Delivery Me thod Room Air 06/01/25 15:10 MDM - Recheck/Abnormal Lab/Rx Medical Decision Making The patient's vitals been stable here. CBC is normal. However, creatinine is 3, with potassium of 6.1. She is given insulin, glucose, sodium HCO3, calcium for this. Chest x-ray is nonacute. Head CT performed for confusion is negative. Urinalysis is negative for UTI. She was admitted for acute renal failure, hyperkalemia, altered mental status. Lab Data 05/31/25 18:16 06/01/25 03:[address] 05/31/25 18:27 IMPRESSION: No acute intracranial posttraumatic changes. Chest X-Ray 05/31/25 18:40 IMPRESSION: 1. No acute cardiopulmonary process. 2. Moderate degenerative change in the glenohumeral joint. 3. Cardiomegaly. Abdomen Ultrasound 06/01/25 20:33 IMPRESSION: 1. Benign left hepatic lobe cyst. 2. Benign bilateral renal cysts. 3. Otherwise unremarkable. Laboratory Results WBC 5.48 10^3/uL (3.29-11.43) 05/31/25 18:16 RBC 4.20 10^6/uL (3.85-5.65) 05/31/25 18:16 Hgb 12.70 g/dL (11.27-16.99) 05/31/25 18:16 Hct 38.5 % (36-47) 05/31/25 18:16 MCV 91.7 fl (85-98) 05/31/25 18:16 MCH 30.2 pg (27-33) 05/31/25 18:16 MCHC 33.0 g/dL (30-55) 05/31/25 18:16 RDW 14.8 % (12.1-15.1) 05/31/25 18:16 Plt Count 248 10^3/cmm (157-399) 05/31/25 18:16 MPV 9.7 fL (7.4-10.4) 05/31/25 18:16 Neut % (Auto) 65.0 % 05/31/25 18:16 Lymph % (Auto) 17.0 % 05/31/25 18:16 [place] % (Auto) 11.5 % 05/31/25 18:16 Eos % (Auto) 4.6 % 05/31/25 18:16 Baso % (Auto) 1.5 % 05/31/25 18:16 Neut # (Auto) 3.57 10^3/uL (1.8-7.7) 05/31/25 18:16 Lymph # (Auto) 0.9 10^3/uL (0.8-4.8) 05/31/25 18:16 [place] # (Auto) 0.6 10^3/uL (0.2-0.9) 05/31/25 18:16 Eos # (Auto) 0.3 10^3/uL (0.0-0.8) 05/31/25 18:16 Baso # (Auto) 0.1 10^3/uL (0.0-0.1) 05/31/25 18:16 Nucleated RBC % (auto) 0 % 05/31/25 18:16 Nucleated RBCs # 0.0 /100WBC 05/31/25 18:16 Sodium 131 mmol/L (136-145) L 05/31/25 18:16 Potassium 6.1 mmol/L (3.5-5.1) H 05/31/25 18:16 Chloride 101 mmol/L (98-107) 05/31/25 18:16 Carbon Dioxide 17 mmol/L (22-29) L 05/31/25 18:16 Anion Gap 19.1 (5-19) H 05/31/25 18:16 BUN 49 mg/dL (8-23) H 05/31/25 18:16 Creatinine 3.0 mg/dL (0.5-0.9) H 05/31/25 18:16 GFR Calculation Not Reportable 05/31/25 18:16 Glucose 87 mg/dL (65-115) 05/31/25 18:16 Calculated Osmolality 284 mOsm/kg (285-295) L 05/31/25 18:16 Lactic Acid 0.8 mmol/L (0.5-2.2) 05/31/25 18:16 Calcium 9.4 mg/dL (8.5-10.5) 05/31/25 18:16 Total Bilirubin 0.3 mg/dL (0.15-1.2) 05/31/25 18:16 AST 30 U/L (0-32) 05/31/25 18:16 ALT 30 U/L (0-33) 05/31/25 18:16 Alkaline Phosphatase 91 U/L (35-105) 05/31/25 18:16 Troponin T Baseline 27 ng/L (0-10) H 05/31/25 18:16 NT-Pro-B Natriuret Pep 625 pg/mL (0-450) H 05/31/25 18:16 Total Protein 7.0 g/dL (6.6-8.7) 05/31/25 18:16 Albumin 3.9 g/dL (3.5-5.2) 05/31/25 18:16 Globulin 3.1 g/dL (1.3-4.6) 05/31/25 18:16 Lipase 82 U/L (13-60) H 05/31/25 18:16 Vitamin B12 533 pg/mL (232-1245) 05/31/25 18:16 25-OH Vitamin D Total 33 ng/mL (30-100) 05/31/25 18:16 25-OH Vitamin D Total Cancelled 05/31/25 18:16 Folate 7.5 ng/mL (4.8-37.3) 05/31/25 18:16 TSH 4.35 uIU/mL (0.27-4.20) H 05/31/25 18:16 Free T4 1.04 ng/dL (0.82-1.77) 05/31/25 18:16 PTH Intact 42.2 pg/mL (15-65) 05/31/25 18:16 Calcium (PTH Intact) 9.3 mg/dL (8.5-10.5) 05/31/25 18:16 Urine Color Yellow (Yellow) 05/31/25 19:24 Urine Appearance Clear (CLEAR) 05/31/25 19:24 Urine pH 5.5 (5-7) 05/31/25 19:24 Ur Specific [place] 1.011 (1.005-1.030) 05/31/25 19:24 Urine Protein Negative (Negative) 05/31/25 19:24 Urine Glucose (UA) Negative (Normal) 05/31/25 19:24 Urine Ketones Negative (Negative) 05/31/25 19:24 Urine Blood Negative (Negative) 05/31/25 19:24 Urine Nitrate Negative (Negative) 05/31/25 19:24 Urine Bilirubin Negative (Negative) 05/31/25 19:24 Urine Urobilinogen 0.2 mg/dL (Negative) 05/31/25 19:24 Ur Leukocyte Esterase Negative (Negative) 05/31/25 19:24 Urine RBC 0-2 /hpf (0-2) 05/31/25 19:24 Urine WBC 0-5 /hpf (0-5) 05/31/25 19:24 Ur Squamous Epith Cells 6-10 /hpf (0-5) 05/31/25 19:24 Amorphous Sediment Not Reportable 05/31/25 19:24 Urine Bacteria None seen /hpf (NONE) 05/31/25 19:24 Hyaline Casts 0.81 /lpf 05/31/25 19:24 Ur Random Sodium 67 mmol/L 05/31/25 19:24 Urine Creatinine 58 mg/dL (28-217) 05/31/25 19:24 All radiology interpretation(s) finalized by discharge Discharge Plan Discharge Patient Disposition: Admitted As Inpatient Admit Provider: Cari Schuler Clinical Impression: TETE (acute kidney injury), Hyperlipemia Condition: Stable Coding Level of Care Code ED Seating Captain for Keith Garza
[2025-05-31 19:39] LABS: Glucose Urine UA Negative (Normal); Nitrate Urine Negative (Negative); Specific Gravity, Urine 1.011 (1.005-1.030)
[2025-05-31 19:41] VITALS: BP 148/81; PULSE 58; RESP 20; O2SAT 98
[2025-05-31 19:41] LABS: Add Urine Microscopic? YES
[2025-05-31 20:18] LABS: Troponin(5th) Baseline 27 ng/L (0-10)
--- NOTE | 2025-05-31 20:29 | ECG_ITS ---
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 [email or web address]
--- NOTE | 2025-05-31 20:38 | PM.HP ---
Providers/Chief Complaint Primary Care Provider: Alfonso Moreno MD Chief Complaint: can't drink enough water [address] History of Present Illness Mila Hernández is a 79 year old female Medications/Allergies Home Medications ?Medication ?Instructions ?Recorded ?Confirmed ?Last Taken ?Type acetaminophen 325 mg tablet 325 mg PO QID PRN 01/16/25 05/29/25 Unknown History (Tylenol) carvedilol 25 mg tablet 37.5 mg PO BID 01/16/25 05/29/25 Unknown History ferrous sulfate 325 mg (65 mg 325 mg PO DAILY 01/16/25 05/29/25 Unknown History iron) tablet furosemide 20 mg tablet (Lasix) 20 mg PO DAILY PRN 01/16/25 05/29/25 Unknown History losartan PO 01/16/25 05/29/25 Unknown History spironolactone 25 mg tablet 12.5 mg PO DAILY 01/16/25 05/29/25 Unknown History mupirocin 2 % topical ointment 1 applic topical TID 7 days #22 02/26/25 05/29/25 Unknown Rx (Centany) grams nystatin 100,000 unit/gram topical 1 applic topical QID 2 weeks #60 02/26/25 05/29/25 Unknown Rx powder grams melatonin 1 mg disintegrating 0.5 mg PO DAILY 03/24/25 05/29/25 Unknown History tablet nitroglycerin 0.4 mg sublingual 0.4 mg sublingual Q5M PRN chest 04/15/25 05/29/25 Unknown Rx tablet pain #20 tabs cetirizine 10 mg tablet (Zyrtec) 10 mg PO DAILY PRN 04/28/25 05/29/25 Unknown History escitalopram oxalate 10 mg tablet 20 mg (2 x 10 mg) PO DAILY #90 tabs 04/28/25 05/29/25 Unknown Rx (Lexapro) omeprazole 40 mg capsule,delayed 40 mg PO BID #60 caps 04/28/25 05/29/25 Unknown Rx release trospium 20 mg tablet 20 mg PO BID 04/28/25 05/29/25 Unknown History losartan 100 mg tablet 100 mg PO ONCE #60 tabs 05/06/25 05/29/25 Unknown Rx sulfamethoxazole 800 1 tab PO BID 7 days #14 tabs 05/25/25 05/29/25 Unknown Rx mg-trimethoprim 160 mg tablet (Bactrim DS) vancomycin 125 mg capsule 125 mg PO Q6H 10 days #40 caps 05/25/25 05/29/25 Unknown Rx memantine 10 mg tablet (Namenda) See Rx Instructions PO BID #60 tabs 05/29/25 05/29/25 Unknown Rx Allergies Allergy/AdvReac Type Severity Reaction Status Date / Time Penicillins Allergy Unknown Verified 05/29/25 08:40 PFSH Acute PFSH: Medical History Precordial pain Nodule of kidney Moderate major depression Nephrolithiasis CKD stage 3b, GFR 30-44 ml/min GERD (gastroesophageal reflux disease) Osteoporosis Hypothyroid Izaguirre esophagus Hiatal hernia Arthritis Hypertension Chronic congestive heart failure, unspecified heart failure type Hyperlipemia Surgical History History of right ankle joint replacement Hx of total knee replacement Hx of rotator cuff surgery Family History Father Cancer Hypertension Mother Heart disease Hypertension Sister Hypertension Social History Smoking and tobacco/nicotine status: never used tobacco/nicotine Alcohol intake: former Substance/Drug Use: never Vitals/I&O/Wt Last Vital Signs Temp 97.8 F 05/31/25 17:33 Pulse 58 L 05/31/25 19:41 Resp 20 H 05/31/25 19:41 BP 148/81 05/31/25 19:41 Pulse Ox 98 05/31/25 19:41 O2 Del Method Room Air 05/31/25 19:41 Weight last 48 hrs Weight 83.007 kg Data 05/31/25 18:16 05/31/25 18:16 A&P Assessment and plan 1. Dementia: Plan: START OF MEDICAL REPORT Cari Schuler D.O. Board Certified Internal Medicine Chief Complaint: ?My mother is dehydrated? History of Present Illness: The patient is a 71-year-old female who is referred to the emergency department due to concerns of dehydration. Per the patient?s daughter, the patient had serum studies performed approximately 48 hours prior to hospitalization. At that time it was found that the patient had renal insufficiency. Fluid intake was encouraged at that time however the Per the patient?s daughter, her fluid intake has not been adequate. The patient had a fall approximately 24 hours prior to hospitalization. The Romero patient fell onto her dresser. There was no noted head trauma or loss of consciousness. In the 24 hours leading up to her hospitalization the patient admits to rigors however she attributes this to feeling cold rather than illness. She denies fever, nausea, vomiting, cough, wheeze, abdominal pain, diarrhea, myalgia, chest pain, dyspnea, light headiness, dizziness, or any other constitutional complaints. She presents for further evaluation I have explained to the patient (if they are coherent, able to comprehend, and/or are communicative) and/or their family member(s), friend(s), guardian(s), and/or other individual(s) present on the patient?s behalf (if present) the patient?s current medical condition, the patient?s current plan of care, and I have answered all questions posed to me. Family History: Cancer Physical Examination: General: -Alert and oriented to name and year but not place -No acute distress. -No dyspnea. -No tachypnea. ? Obese Head: -Atraumatic. -Normocephalic. Eyes: -Pupils equally round and reactive to light and accommodation. -Extraocular muscles intact. Neurological: -Cranial nerves II-XII intact. Neck: -No jugular venous distention. -No thyromegaly. -No cervical lymphadenopathy. Heart: -iRegular rate. -Regular rhythm. -No murmurs. -No gallops. -No rubs. Lungs: -No wheeze. -No rhonchi. -No rales. Abdomen: -Normal bowel sounds in all four quadrants. -No rebound. -No guarding. -No tenderness. Extremities: -2/4 pulse in all four extremities. -No clubbing. -No cyanosis. ? Trace bilateral lower extremity edema?nonpitting -No calf tenderness present bilaterally. -Negative Rekha?s sign bilaterally. Musculoskeletal: -5/5 bilateral upper extremity strength. -5/5 bilateral lower extremity strength. -Sensorium of bilateral upper extremities are equal and intact. -Sensorium of bilateral lower extremities are equal and intact. Additional Details / Additional Findings / Exceptions / Miscellaneous: Pertinent Laboratory Results / Pertinent Radiology Results / Pertinent Diagnostic Results / Pertinent Vital Signs: Blood pressure 148/81, heart rate 58, respirations 20, temperature 97.8?, 98% room air. BNP 600.5, sodium 131, potassium 6.1, bicarbonate 17, creatinine 3, lipase 82 Social History: Caffeine: Coffee Tobacco: Never Alcohol: Occasional Pets: Yes + Allergies: Penicillin Code Status: DNI but request cardiac resuscitation if necessary Admission Date: 8:35 PM on May 31, 2025 Discharge Date: History of Present Illness / Hospital Course Summary: The patient is a 71-year-old female who is referred to the emergency department due to concerns of dehydration. Per the patient?s daughter, the patient had serum studies performed approximately 48 hours prior to hospitalization. At that time it was found that the patient had renal insufficiency. Fluid intake was encouraged at that time however the Per the patient?s daughter, her fluid intake has not been adequate. The patient had a fall approximately 24 hours prior to hospitalization. The Romero patient fell onto her dresser. There was no noted head trauma or loss of consciousness. In the 24 hours leading up to her hospitalization the patient admits to rigors however she attributes this to feeling cold rather than illness. She denies fever, nausea, vomiting, cough, wheeze, abdominal pain, diarrhea, myalgia, chest pain, dyspnea, light headiness, dizziness, or any other constitutional complaints. She presents for further evaluation Surgical History: Left rotator cuff surgery, bilateral knee surgery, right ankle surgery, ?a whole lot of other surgeries I cannot remember right now? Assessment / Plan + Medical History: Status post fall. CT of the head negative. Orthostatics are pending in the emergency department. Will monitor patient on telemetry and checks her cardiac enzymes. Neuro checks every 4 hours. Check TSH, free T4, B12, folate, 25 hydroxy vitamin D level, 1, 25 hydroxy vitamin D level. PT eval. OT eval. Metabolic acidosis. We will monitor serum bicarbonate level intermittently. IV normal saline 100 mL/h Hyperkalemia. We will monitor potassium level intermittently and correct as necessary. Telemetry monitoring Hyponatremia. We will monitor sodium level intermittently. IV normal saline 100 mL/h Acute on chronic kidney disease. Apparent baseline creatinine is 1.7. We will monitor creatinine intermittently. Strict I/O. Daily weight. Check PTH, abdominal ultrasound?complete, urine sodium, urine creatinine. IV normal saline 100 mL/h Documented history of iron deficiency Documented history of CHF, last ejection fraction from February 2025 is 60-65%. Strict I/O. Daily weight GERD Hyperlipidemia Hypertension Obesity. The patient will be counseled regarding lifestyle medication Dementia Hyper lipasemia. No symptoms/signs of pancreatitis present. We will monitor lipase level intermittently. Check abdominal ultrasound?complete. IV normal saline 100 mL/h History of bilateral renal lesion. Check abdominal ultrasound?complete however the patient will need to schedule MRI of the abdomen with and without contrast with her primary care physician or a provider Anxiety Diverticulosis Depression History of nephrolithiasis Hypothyroidism. Check TSH, free T4 Osteoporosis Per graph arthritis Insomnia DVT prophylaxis. Bilateral SCD Consultations: None Disposition: Anticipate discharge in 24-72 hours + Discharge Diet: 2 g sodium, cardiac, renal Discharge Activity: Discharge Condition: Discharge Medications: Time Spent with Patient: Greater than 30 minutes. Cari Schuler D.O. Board Certified Internal Medicine END OF MEDICAL REPORT PDMP PDMP Reviewed: Not Reviewed Attestations Medical Necessity Statement*: 2midnights expected Time Spent in Patient Care: Greater than 35 minutes Coding Level of Care Code Acute Code for Chg Fwd Diagnoses Dementia F03.90
[2025-05-31 20:57] LABS: Creatinine Urine, Random 58 mg/dL (28-217)
[2025-05-31 20:58] LABS: Urine Random Sodium 67 mmol/L
[2025-05-31 21:04] LABS: Troponin 5 2HR 24.69 ng/L (0-10)
[2025-05-31 21:08] LABS: Troponin 5 2HR Delta -2.31 ABS# (0-10)
[2025-05-31 21:08] LABS: Free T4 Free Thyroxine 1.04 ng/dL (0.82-1.77); Thyroid Stimulating Hormone 4.35 uIU/mL (0.27-4.20)
[2025-05-31] MEDS: calcium gluconate 0.1 gm/mL 10% SDV 10mL 1 GM IVP (21:13)
[2025-05-31 21:18] VITALS: BP 148/97; PULSE 61; RESP 21; O2SAT 95
[2025-05-31] MEDS: insulin regular-human 100 units/1 mL 8 UNIT IVP (21:55)
[2025-05-31 22:09] VITALS: BP 104/76; PULSE 67; RESP 19; O2SAT 98
[2025-05-31 22:11] VITALS: PULSE 63
[2025-05-31 22:23] LABS: Calcium 9.3 mg/dL (8.5-10.5)
[2025-05-31 22:39] LABS: Vitamin B12 533 pg/mL (232-1245)
[2025-06-01] VITALS (11 sets, daily range): BP systolic 110–162; BP diastolic 59–89; PULSE 51–100; RESP 16–20; TEMP 36.4–36.8; O2SAT 93–96
[2025-06-01 01:04] LABS: Troponin 5 6HR 27.59 ng/L (0-10); Troponin 5 6HR Delta 0.59 ng/L (0-12)
--- NOTE | 2025-06-01 01:30 | PC.NURSE ---
Handoff report given to SEGUNDO Nayak at this time.
--- NOTE | 2025-06-01 02:28 | ECG_ITS ---
[facility] Date: 2025-06-01 Pat Name: Mila Hernández Department: Room: 250 Gender: Female Gis Engineer: : [id number] Requested By: Cari Schuler Order Number: [id number] Chelsie MD: Bebo Reyes M.D. Measurements Intervals [place] Rate: 65 P: 19 FL: 194 QRS: 5 QRSD: 88 T: 47 QT: 447 QTc: 467 Interpretive Statements SINUS RHYTHM Compared to ECG 05/31/2025 21:15:00 NO SIGNIFICANT CHANGE Electronically Signed On 06-01-2025 16:12:58 SENIOR SHAREPOINT DEVELOPER by Bebo Reyes M.D. [id number]
[2025-06-01 04:20] LABS: Anion Gap 13.0 (5-19); Blood Urea Nitrogen 40 mg/dL (8-23); Calcium 8.7 mg/dL (8.5-10.5); Carbon Dioxide 19 mmol/L (22-29); Chloride 109 mmol/L (98-107); Glucose 84 mg/dL (65-115); Lipase 68 U/L (13-60); Magnesium 1.9 mg/dL (1.7-2.3); Osmolality Calculated 291 mOsm/kg (285-295); Potassium 5.0 mmol/L (3.5-5.1); Sodium 136 mmol/L (136-145)
--- NOTE | 2025-06-01 07:36 | P.PN_ITS ---
Subjective 2 Subjective: Patient is a pleasantly confused 79-year-old female seen and examined at bedside on hospital rounds today. Patient's daughter is at the bedside. Patient denies any symptoms but her orientation is only x 2. Patient's daughter stated that she moved her in with her 8 months ago due to decline in mentation with diagnosis of dementia, but she has had recurrent UTIs over the last month and seems that her dementia is much worse now. Patient has generalized weakness, but otherwise denies new or worsening symptoms. Currently waiting abdominal ultrasound results, patient will need to schedule an outpatient MRI of the abdomen with and without contrast with her primary care physician on discharge. Creatinine 2.7 improved over admitting creatinine 3.0, baseline around 1.7, we will continue IV fluid hydration and renally dose medications. Vitals/I&O/Wt Last Vital Signs Temp 97.5 F L 06/01/25 04:00 Pulse 66 06/01/25 07:26 Resp 20 H 06/01/25 07:26 BP 148/89 06/01/25 07:26 Pulse Ox 94 06/01/25 07:26 O2 Del Method Room Air 06/01/25 07:26 05/31/25 06/01/25 06/01/25 22:59 06:59 14:59 Intake Total 2740.21 / 2740.21 240 / 2980.21 Balance 2740.21 / 2740.21 240 / 2980.21 Weight last 48 hrs Weight 88.224 kg Weight 83.007 kg Physical Exam 2 Const: COMMON NORMALS: no acute distress, average body habitus and alert O RIENTATION/CONSCIOUSNESS: Yes oriented to person OTHER: Patient is orientated x 2 HENMT: COMMON NORMALS: normocephalic, Normal external nose present and moist oral mucous membranes HEAD & SCALP: normocephalic NOSE: Normal external nose present Eye: COMMON NORMALS: Equal, round and reactive pupils present PUPIL: Yes Equal, round and reactive pupils present Neck/C-Spine: COMMON NORMALS: no JVD Resp: COMMON NORMALS: normal respiratory effort, No retractions and clear to auscultation bilaterally AUSCULTATION: clear to auscultation bilaterally Cardio: COMMON NORMALS: no JVD, regular rhythm, S1 normal heart sound present and S2 normal heart sound present RHYTHM: regular rhythm HEART SOUNDS: S1 normal heart sound present and S2 normal heart sound present GI: COMMON NORMALS: Normal to inspection, nondistended, normoactive bowel sounds present Extremity: COMMON NORMALS: normal to inspection and full ROM Neuro: SENSORIUM/ORIENTATION: Yes alert, Yes oriented to person, Yes Orientation impaired and Yes other (Generalized weakness) Psych: COMMON NORMALS: cooperative and speech normal SPEECH: Yes normal speech JUDGEMENT: questionable Skin: COMMON NORMALS: no rashes or lesions noted and turgor normal GENERAL SKIN EXAM: no rashes or lesions noted and turgor normal Data 05/31/25 18:16 06/01/25 03:08 A&P Assessment and plan 1. Dementia: 2. TETE (acute kidney injury): 3. Memory impairment: 4. Moderate major depression: 5. GERD (gastroesophageal reflux disease): 6. Hypertension: 7. Chronic congestive heart failure, unspecified heart failure type: 8. Hyperlipemia: Plan: Status post fall Generalized weakness - CT of the head negative. - PT eval. OT eval. Recent C-diff - Continue oral vancomycin (day 8) TETE Metabolic acidosis Hyperkalemia - Renally dose medications - IV normal saline 100 mL/hr - We will monitor potassium level intermittently and correct as necessary. - Telemetry monitoring Hyponatremia - We will monitor sodium level intermittently. - IV normal saline 100 mL/h Acute on chronic kidney disease - Apparent baseline creatinine is 1.7. - We will monitor creatinine intermittently. - Strict I/O. Daily weight. - Check PTH, abdominal ultrasound?complete, urine sodium, urine creatinine. - IV normal saline 100 mL/h Documented history of iron deficiency anemia - Continue Ferrous Sulfate Documented history of CHF, last ejection fraction from February 2025 is 60-65%. - Strict I/O. - Daily weight GERD - PPI Hyperlipidemia - Not currently on statin Hypertension - Continue home dosing Coreg, Losartan Obesity - The patient will be counseled regarding lifestyle medication - BMI 39.3 Dementia - Continue home dosing Memantine - Continue outpatient management per primary Hyper lipasemia. No symptoms/signs of pancreatitis present. We will monitor lipase level intermittently. Check abdominal ultrasound?complete. IV normal saline 100 mL/h History of bilateral renal lesion. - Check abdominal ultrasound?complete however the patient will need to schedule MRI of the abdomen with and without contrast with her primary care physician or a provider Anxiety/Depression - Supportive measures - Continue Lexapro Hypothyroidism - TSH 4.35 - Insomnia - Melatonin 3mg PO HS DVT PPX: Bilateral SCD GI PPX: PPI Code Status: Limited Resuscitation PDMP PDMP Reviewed: Not Reviewed Attestations 2 Medical Necessity Statement*: Patient will need to continue care inpatient crossing 2 midnights due to need for continued IV antibiotic therapy with TETE, metabolic acidosis, hyperkalemia, and further workup and evaluation. Coding Level of Care Code 38322 Diagnoses Dementia F03.90 TETE (acute kidney injury) N17.9 Memory impairment R41.3 Moderate major depression F32.1 GERD (gastroesophageal reflux disease) K21.9 Hypertension I10 Chronic congestive heart failure, unspecified heart failure type I50.9 Heart failure chronicity: chronic Heart failure type: unspecified Hyperlipemia E78.5
[2025-06-01] MEDS: LOSARTAN 100 MG TABLET PO (10:14)
[2025-06-01] MEDS: ondansetron 2 mg/ML SDV 2 mL 4 MG IVP (12:37)
--- OUTSIDE RECORDS SUMMARY | 2025-06-01 18:27 | XMS_ITS | Clinical Summary ---
Author Organization [facility] Address [address] Herrera: Epic Prelude ADT JEY BALDWIN [address] Care Team Providers Care Teller Vault Name Role Phone Unavailable Primary Care Provider [...] Data STL ABSTRACTION Provider, Abstract 04/28/2025 Refill [facility] [place] [address] [place] [address] Amber Dai NP 04/03/2025 Orders Only [facility] [place] [address] [place] [address] Rae Nettles RN 04/02/2025 2:00 PM CDT Office Visit [facility] [place] [facility] [address] [place] [address] Amber Dai NP Stress incontinence (Primary Dx) [...] on file Legal Sex Female 12:19 AM PROJECT LANDSCAPE ARCHITECT Gender Identity Not on file Sexual Orientation Not on file Last Filed Vital Signs Vital Sign Reading Time Taken Comments Blood Pressure 130/80 08/24/2018 9:59 AM PROJECT LANDSCAPE ARCHITECT Pulse 67 08/24/2018 9:59 AM PROJECT LANDSCAPE ARCHITECT Temperature 36.7 C (98 F) 08/24/2018 9:59 AM PROJECT LANDSCAPE ARCHITECT Respiratory Rate 20 04/26/2018 10:12 AM CDT Oxygen Saturation - - Inhaled Oxygen Concentration - - Weight 86.2 kg (190 lb) 08/24/2018 9:59 AM PROJECT LANDSCAPE ARCHITECT Height 152.4 cm (5') 08/24/2018 9:59 AM PROJECT LANDSCAPE ARCHITECT Body Mass Index 37.11 08/24/2018 9:59 AM PROJECT LANDSCAPE ARCHITECT Plan of Treatment Upcoming Encounters Date Type Department Care Team (Late st Contact Info) Description 07/02/2025 2:30 PM PROJECT LANDSCAPE ARCHITECT Office Visit [facility] [place] [address] [place] [address] Amber Dai NP [address] [place] [address] Health Maintenance Due Date Last [...] years Discontinued Medical Devices Implanted Type Area Air Twist Operator Device Identifier Shelf Expiration Date Model / Serial / Lot Capsule Ph Testing [employer]att [id number] - [id number] Implanted:Qty: 1 on 03/21/2017 by Jose G Man MD Other [employer] 12/19/2017 [id number] / / [id number] Description:ID# [id number] Procedures Procedure Name Priority Date/Time Associated Diagnosis Comments POC URINALYSIS DIPSTICK AUTOMATED Routine 04/02/2025 3:09 PM CDT ENDOSCOPY, COLON, SCREENING 03/21/2017 12:00 AM CDT XR DEXA BONE DENSITY AXIAL 1 OR MORE SITES Routine 09/08/2016 2:14 PM PROJECT LANDSCAPE ARCHITECT Asymptomatic menopausal state Screening for osteoporosis from Last 3 Months or Most Recently Relevant to Health Maintenance Results * POC URINALYSIS DIPSTICK AUTOMATED (04/02/2025 3:09 PM CDT) COLOR UA Yellow Pale to Dark Yellow 04/02/2025 3:09 PM CDT [facility] UA Clear Clear 04/02/2025 3:09 PM CDT [facility] GLUCOSE UA Negative Negative 04/02/2025 3:09 PM CDT [facility] BILIRUBIN UA Negative Negative 04/02/2025 3:09 PM CDT [facility] KETONES UA Negative Negative 04/02/2025 3:09 PM CDT [facility] BLOOD UA Negative Negative 04/02/2025 3:09 PM CDT [facility] PH UA 6.0 5.0 - 8.0 04/02/2025 3:09 PM CDT [facility] PROTEIN UA Negative Negative 04/02/2025 3:09 PM CDT [facility] UROBILINOGEN UA 0.2 <2.0 mg/dL 3:09 PM CDT [facility] NITRITE UA Negative Negative 04/02/2025 3:09 PM CDT [facility] LEUKOCYTE ESTERASE UA Negative Negative 04/02/2025 3:09 PM CDT [facility] SPECIFIC GRAVITY UA POC 1.015 1.000 - 1.030 04/02/2025 3:09 PM CDT [facility] Urine 04/02/2025 3:09 PM CDT 04/02/2025 3:12 PM CDT us Amber Dai NP POINT OF CARE TESTING Final Result [facility] UROLOGY JAQUAN WALLER# [id number] [address] [place] [id number], [place] * ENDOSCOPY, COLON, SCREENING (03/21/2017 12:00 AM CDT) us Jose G Man MD GI PROCEDURE ORDERABLES Edited Result - Final * XR DEXA BONE DENSITY AXIAL 1 OR MORE SITES (09/08/2016 2:14 PM PROJECT LANDSCAPE ARCHITECT) Anatomical Region Laterality Modality Other Narrative 09/08/2016 2:18 PM PROJECT LANDSCAPE ARCHITECT PROCEDURE: XR DEXA BONE DENSITY AXIAL 1 [...] Maintenance Insurance MEDICARE PART A AND B [facility] [id number]
[2025-06-01] MEDS: MELATONIN 3 MG TABLET PO (20:03)
--- NOTE | 2025-06-01 20:33 | USR_ITS ---
PROCEDURE INFORMATION: Exam: US Abdomen Complete Exam date and time: 06/01/2025 7:11 AM Age: 79 years old Clinical indication: Condition or disease; Other: Ckd; Additional info: Hyperlipasemia, ckd TECHNIQUE: Imaging protocol: Real-time ultrasound of the abdomen with image documentation. Complete exam. COMPARISON: CT abdomen pelvis con [id number] 01/12/2025 2:13 PM FINDINGS: Liver: Normal size, smooth contour, normal echogenicity. Simple 2.9 cm benign cyst, left hepatic lobe. The liver measures 12 cm in length. Gallbladder: Normal. No gallstones. There is no gallbladder wall thickening. The gallbladder wall measures 2 mm in thickness. No Nelson's sign. Biliary ducts: Normal. No stones. Normal size for age. The CBD measures 5 mm in diameter. Pancreas: Visualized pancreas is unremarkable. Right kidney: The right kidney is mildly small in size. Length = 8.5 cm (Normal 9.0-13.0 cm). No echogenic stone. 1.7 cm exophytic benign-appearing cyst, mid kidney. No hydronephrosis. Left kidney: The left kidney is normal in size with a 10 cm benign-appearing superior pole cyst.. Length = 11 cm (Normal 9.0-13.0 cm). No echogenic stone. No mass. No hydronephrosis. Spleen: Spleen is unremarkable. Length: 7 cm. Aorta: Normal. No aneurysm. Maximum diameter: 1.6 cm. Inferior vena cava: Unremarkable. Portal venous: There is antegrade flow in the portal vein. US/US abdomen complete* [id number] IMPRESSION: 1. Benign left hepatic lobe cyst. 2. Benign bilateral renal cysts. 3. Otherwise unremarkable.
[2025-06-02] VITALS (11 sets, daily range): BP systolic 97–156; BP diastolic 62–83; PULSE 55–98; RESP 16–18; TEMP 36.3–36.7; O2SAT 93–97
[2025-06-02] MEDS: LOSARTAN 100 MG TABLET PO (05:05)
--- NOTE | 2025-06-02 07:19 | P.PN_ITS ---
Subjective 2 Subjective: Patient is a very pleasantly confused 79-year-old female seen and examined at bedside on hospital rounds today. Reviewed patient's labs and ultrasound with patient's daughter at the bedside. Patient's mental status is unchanged. Currently awaiting physical therapy and Occupational Therapy evaluation recommendations. Patient states she slept well and denies any symptoms, again orientated to 1 this morning. Vital signs remained stable. All questions and concerns addressed with the patient and her daughter at the bedside. Vitals/I&O/Wt Last Vital Signs Temp 97.9 F 06/02/25 04:00 Pulse 55 L 06/02/25 05:49 Resp 18 06/02/25 04:00 BP 115/68 06/02/25 04:00 Pulse Ox 93 06/02/25 04:00 O2 Del Method Room Air 06/02/25 04:00 06/01/25 06/02/25 06/02/25 22:59 06:59 14:59 Intake Total 1041.667 / 2161.667 905 / 3066.667 Output Total 150 / 150 Balance 891.667 / 2011.667 905 / 2916.667 Weight last 48 hrs Weight 91.852 kg Weight 88.224 kg Weight 83.007 kg Physical Exam 2 Const: COMMON NORMALS: no acute distress, average body habitus and alert O RIENTATION/CONSCIOUSNESS: Yes oriented to person OTHER: Patient is orientated x 1 HENMT: COMMON NORMALS: normocephalic, Normal external nose present and moist oral mucous membranes HEAD & SCALP: normocephalic NOSE: Normal external nose present Eye: COMMON NORMALS: Equal, round and reactive pupils present PUPIL: Yes Equal, round and reactive pupils present Neck/C-Spine: COMMON NORMALS: no JVD Resp: COMMON NORMALS: normal respiratory effort, No retractions and clear to auscultation bilaterally AUSCULTATION: clear to auscultation bilaterally Cardio: COMMON NORMALS: no JVD, regular rhythm, S1 normal heart sound present and S2 normal heart sound present RHYTHM: regular rhythm HEART SOUNDS: S1 normal heart sound present and S2 normal heart sound present GI: COMMON NORMALS: Normal to inspection, nondistended, normoactive bowel sounds present Extremity: COMMON NORMALS: normal to inspection and full ROM Neuro: SENSORIUM/ORIENTATION: Yes alert, Yes oriented to person, Yes Orientation impaired and Yes other (Generalized weakness) Psych: COMMON NORMALS: cooperative and speech normal SPEECH: Yes normal speech JUDGEMENT: questionable Skin: COMMON NORMALS: no rashes or lesions noted and turgor normal GENERAL SKIN EXAM: no rashes or lesions noted and turgor normal Data 06/02/25 08:19 06/02/25 08:19 A&P Assessment and plan 1. Dementia: 2. TETE (acute kidney injury): 3. Memory impairment: 4. Moderate major depression: 5. GERD (gastroesophageal reflux disease): 6. Hypertension: 7. Chronic congestive heart failure, unspecified heart failure type: 8. Hyperlipemia: Plan: Status post fall Generalized weakness - CT of the head negative. - PT eval. OT eval. Recent C-diff - Continue oral vancomycin (day 8) TETE Metabolic acidosis Hyperkalemia, resolved -Potassium now 4.1 - Renally dose medications - IV normal saline 100 mL/hr - We will monitor potassium level intermittently and correct as necessary. - Telemetry monitoring Hyponatremia, resolved - Sodium 140 - We will monitor sodium level intermittently. - IV normal saline 100 mL/h Acute on chronic kidney disease, currently at baseline -Creatinine this morning 1.7 from 2.7 yesterday - Apparent baseline creatinine is 1.7. - We will monitor creatinine intermittently. - Strict I/O. Daily weight. - Check PTH, abdominal ultrasound?complete, urine sodium, urine creatinine. - IV normal saline 100 mL/h Documented history of iron deficiency anemia - Continue Ferrous Sulfate Documented history of CHF, last ejection fraction from February 2025 is 60-65%. - Strict I/O. - Daily weight GERD - PPI Hyperlipidemia - Not currently on statin Hypertension - Continue home dosing Coreg, Losartan Obesity - The patient will be counseled regarding lifestyle medication - BMI 39.3 Dementia - Continue home dosing Memantine - Continue outpatient management per primary Hyper lipasemia. No symptoms/signs of pancreatitis present. We will monitor lipase level intermittently. Check abdominal ultrasound?complete. IV normal saline 100 mL/h History of bilateral renal lesion. - Check abdominal ultrasound?complete however the patient will need to schedule MRI of the abdomen with and without contrast with her primary care physician or a provider Anxiety/Depression - Supportive measures - Continue Lexapro Hypothyroidism - TSH 4.35 Insomnia - Melatonin 3mg PO HS DVT PPX: Bilateral SCD GI PPX: PPI Code Status: Limited Resuscitation PDMP PDMP Reviewed: Not Reviewed Attestations 2 Medical Necessity Statement*: Patient will need to continue care inpatient crossing 2 midnights due to need for continued IV antibiotic therapy with TETE, metabolic acidosis, hyperkalemia, and further workup with physical therapy and Occupational Therapy and evaluation. Coding Level of Care Code Acute Code for g Fwd Diagnoses Dementia F03.90 TETE (acute kidney injury) N17.9 Memory impairment R41.3 Moderate major depression F32.1 GERD (gastroesophageal reflux disease) K21.9 Hypertension I10 Chronic congestive heart failure, unspecified heart failure type I50.9 Heart failure chronicity: chronic Heart failure type: unspecified Hyperlipemia E78.5
[2025-06-02 08:29] LABS: Hematocrit 33.4 % (36-47); Hemoglobin 10.90 g/dL (11.27-16.99); Mean Corpuscular HGB Conc 32.6 g/dL (30-55); Mean Corpuscular Hemoglobin 30.6 pg (27-33); Mean Corpuscular Volume 93.8 fl (85-98); Nucleated Red Blood Cells % 0 %; Platelet Count 193 10^3/cmm (157-399); Red Blood Count 3.56 10^6/uL (3.85-5.65); White Blood Count 4.60 10^3/uL (3.29-11.43)
[2025-06-02 08:52] LABS: Alanine Aminotransferase 26 U/L (0-33); Albumin Level 3.3 g/dL (3.5-5.2); Alkaline Phosphatase 69 U/L (35-105); Anion Gap 11.1 (5-19); Aspartate Amino Transferase 24 U/L (0-32); Blood Urea Nitrogen 22 mg/dL (8-23); Calcium 8.4 mg/dL (8.5-10.5); Carbon Dioxide 20 mmol/L (22-29); Chloride 113 mmol/L (98-107); Globulin 1.7 g/dL (1.3-4.6); Glucose 87 mg/dL (65-115); Osmolality Calculated 293 mOsm/kg (285-295); Potassium 4.1 mmol/L (3.5-5.1); Sodium 140 mmol/L (136-145); Total Protein 5.0 g/dL (6.6-8.7)
[2025-06-02 08:53] LABS: Magnesium 1.8 mg/dL (1.7-2.3)
--- NOTE | 2025-06-02 19:51 | ECG_ITS ---
[employer] Test Date: 2025-06-02 Pat Name: Mila Hernández Department: Room: 250 Gender: Female Manager Pet: : [id number] Requested By: Cari Schuler Order Number: [id number] Chelsie MD: Sherri Benítez M.D. Measurements Intervals [place] Rate: 48 P: 21 [place]: 170 QRS: -7 QRSD: 93 T: 22 QT: 450 QTc: 404 Interpretive Statements SINUS BRADYCARDIA WITH SINUS ARRHYTHMIA LOW QRS VOLTAGE IN PRECORDIAL LEADS [QRS DEFLECTION < 1.0 mV IN CHEST LEADS] POSSIBLE ANTERIOR MYOCARDIAL INFARCTION , PROBABLY OLD [30 ms Q WAVE IN V3/V4, OR R < 0.2 mV IN V4] INFERIOR MYOCARDIAL INFARCTION , PROBABLY OLD [40+ ms Q WAVE AND/OR ST/T ABNORMALITY IN II/aVF] Compared to ECG 06/01/2025 02:42:51 Low QRS voltage now present Myocardial infarct finding now present Sinus rhythm no longer present Electronically Signed On 06-05-2025 00:21:59 [employer] by Sherri Benítez M.D. [email or web address]
--- OUTSIDE RECORDS SUMMARY | 2025-06-02 20:52 | XMS_ITS | Clinical Summary ---
Author Organization [facility] Address [address] Dr[address] 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 Role Phone Unavailable Primary Care Provider [...] ABSTRACTION Provider, Abstract 04/28/2025 Refill [facility] [place] [address] [place] [address] Amber Dai NP 04/03/2025 Orders Only [facility] [place] [address] [place] [address] Rae Nettles RN 04/02/2025 2:00 PM CDT Office Visit [facility] [place] [facility] [address] [place] [address] Amber Dai NP Stress incontinence (Primary Dx) [...] on file Legal Sex Female 12:19 AM ESTATE AGENT Gender Identity Not on file Sexual Orientation Not on file Last Filed Vital Signs Vital Sign Reading Time Taken Comments Blood Pressure 130/80 08/24/2018 9:59 AM ESTATE AGENT Pulse 67 08/24/2018 9:59 AM ESTATE AGENT Temperature 36.7 C (98 F) 08/24/2018 9:59 AM ESTATE AGENT Respiratory Rate 20 04/26/2018 10:12 AM CDT Oxygen Saturation - - Inhaled Oxygen Concentration - - Weight 86.2 kg (190 lb) 08/24/2018 9:59 AM ESTATE AGENT Height 152.4 cm (5') 08/24/2018 9:59 AM ESTATE AGENT Body Mass Index 37.11 08/24/2018 9:59 AM ESTATE AGENT Plan of Treatment Upcoming Encounters Date Type Department Care Team (Late st Contact Info) Description 07/02/2025 2:30 PM ESTATE AGENT Office Visit [facility] [place] [address] [place] [address] Amber Dai NP [address] [place] [address] Health Maintenance Due Date Last [...] years Discontinued Medical Devices Implanted Type Area 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 Device Identifier Shelf Expiration Date Model / Serial / Lot Capsule Ph Testing [employer]att [id number] - [id number] Implanted:Qty: 1 on 03/21/2017 by Jose G Man MD Other [employer] 12/19/2017 [id number] / / [id number] Description:ID# [id number] Procedures Procedure Name Priority Date/Time Associated Diagnosis Comments POC URINALYSIS DIPSTICK AUTOMATED Routine 04/02/2025 3:09 PM CDT ENDOSCOPY, COLON, SCREENING 03/21/2017 12:00 AM CDT XR DEXA BONE DENSITY AXIAL 1 OR MORE SITES Routine 09/08/2016 2:14 PM ESTATE AGENT Asymptomatic menopausal state Screening for osteoporosis from Last 3 Months or Most Recently Relevant to Health Maintenance Results * POC URINALYSIS DIPSTICK AUTOMATED (04/02/2025 3:09 PM CDT) COLOR UA Yellow Pale to Dark Yellow 04/02/2025 3:09 PM CDT [facility] CLAR[facility] UA Clear Clear 04/02/2025 3:09 PM CDT [facility] GLUCOSE UA Negative Negative 04/02/2025 3:09 PM CDT [facility] BILIRUBIN UA Negative Negative 04/02/2025 3:09 PM CDT [facility] KETONES UA Negative Negative 04/02/2025 3:09 PM CDT [facility] BLOOD UA Negative Negative 04/02/2025 3:09 PM CDT [facility] PH UA 6.0 5.0 - 8.0 04/02/2025 3:09 PM CDT [facility] PROTEIN UA Negative Negative 04/02/2025 3:09 PM CDT [facility] UROBILINOGEN UA 0.2 <2.0 mg/dL 3:09 PM CDT [facility] NITRITE UA Negative Negative 04/02/2025 3:09 PM CDT [facility] LEUKOCYTE ESTERASE UA Negative Negative 04/02/2025 3:09 PM CDT [facility] SPECIFIC GRAVITY UA POC 1.015 1.000 - 1.030 04/02/2025 3:09 PM CDT [facility] Urine 04/02/2025 3:09 PM CDT 04/02/2025 3:12 PM CDT us Amber Dai NP POINT OF CARE TESTING Final Result [facility]Y JAQUAN WALLER# [id number] [address] [place] [address], [place] * ENDOSCOPY, COLON, SCREENING (03/21/2017 12:00 AM CDT) us Jose G Man MD GI PROCEDURE ORDERABLES Edited Result - Final * XR DEXA BONE DENSITY AXIAL 1 OR MORE SITES (09/08/2016 2:14 PM ESTATE AGENT) Anatomical Region Laterality Modality Other Narrative 09/08/2016 2:18 PM ESTATE AGENT PROCEDURE: XR DEXA BONE DENSITY AXIAL 1 [...] Maintenance Insurance MEDICARE PART A AND B [facility] [id number]
[2025-06-02] MEDS: MELATONIN 3 MG TABLET PO (21:06)
[2025-06-03 03:40] VITALS: BP 138/70; PULSE 64; RESP 16; TEMP 36.2; O2SAT 94
[2025-06-03] MEDS: LOSARTAN 100 MG TABLET PO (04:54)
[2025-06-03] MEDS: ferrous sulfate EC 325 mg Tablet PO (04:58)
[2025-06-03 06:00] VITALS: PULSE 58
[2025-06-03 07:30] VITALS: BP 164/90; PULSE 55; RESP 16; TEMP 36.4; O2SAT 96
[2025-06-03 07:35] LABS: Hematocrit 31.9 % (36-47); Hemoglobin 10.40 g/dL (11.27-16.99); Mean Corpuscular HGB Conc 32.6 g/dL (30-55); Mean Corpuscular Hemoglobin 30.4 pg (27-33); Mean Corpuscular Volume 93.3 fl (85-98); Nucleated Red Blood Cells % 0 %; Platelet Count 181 10^3/cmm (157-399); Red Blood Count 3.42 10^6/uL (3.85-5.65); White Blood Count 4.73 10^3/uL (3.29-11.43)
[2025-06-03 07:53] LABS: Alanine Aminotransferase 26 U/L (0-33); Albumin Level 3.1 g/dL (3.5-5.2); Alkaline Phosphatase 67 U/L (35-105); Anion Gap 9.1 (5-19); Aspartate Amino Transferase 24 U/L (0-32); Blood Urea Nitrogen 20 mg/dL (8-23); Calcium 8.1 mg/dL (8.5-10.5); Carbon Dioxide 21 mmol/L (22-29); Chloride 113 mmol/L (98-107); Globulin 1.8 g/dL (1.3-4.6); Glucose 84 mg/dL (65-115); Osmolality Calculated 290 mOsm/kg (285-295); Potassium 4.1 mmol/L (3.5-5.1); Sodium 139 mmol/L (136-145); Total Protein 4.9 g/dL (6.6-8.7)
[2025-06-03 07:54] LABS: Magnesium 1.7 mg/dL (1.7-2.3)
--- NOTE | 2025-06-03 08:33 | PM.DCS ---
Discharge Providers Date of Admission: 05/31/25 20:03 Date of Discharge: June 03, 2025 Attending Provider at Admission: Cari Schuler DO Attending Provider at Discharge: Cheryl Castro NP Primary Care Provider: Alfonso Moreno MD Diagnoses at Discharge Discharge Diagnosis 1. Dementia: 2. TETE (acute kidney injury): 3. Memory impairment: 4. Moderate major depression: 5. GERD (gastroesophageal reflux disease): 6. Hypertension: 7. Chronic congestive heart failure, unspecified heart failure type: 8. Hyperlipemia: Reason for Visit Reason for Visit: can't drink enough water Dr jenna Brief History: Admission: The patient is a 71-year-old female who is referred to the emergency department due to concerns of dehydration. Per the patient?s daughter, the patient had serum studies performed approximately 48 hours prior to hospitalization. At that time it was found that the patient had renal insufficiency. Fluid intake was encouraged at that time however the Per the patient?s daughter, her fluid intake has not been adequate. The patient had a fall approximately 24 hours prior to hospitalization. The Romero patient fell onto her dresser. There was no noted head trauma or loss of consciousness. In the 24 hours leading up to her hospitalization the patient admits to rigors however she attributes this to feeling cold rather than illness. She denies fever, nausea, vomiting, cough, wheeze, abdominal pain, diarrhea, myalgia, chest pain, dyspnea, light headiness, dizziness, or any other constitutional complaints. She presents for further evaluation. Hospital Course Hospital Course Status post fall Generalized weakness - CT of the head negative. - PT eval. OT eval. Recent C-diff - Continue oral vancomycin, completed TETE Metabolic acidosis Hyperkalemia, resolved -Potassium now 4.1 - Renally dose medications - IV normal saline 100 mL/hr - We will monitor potassium level intermittently and correct as necessary. - Telemetry monitoring Hyponatremia, resolved - Sodium 140 - We will monitor sodium level intermittently. - IV normal saline 100 mL/h Acute on chronic kidney disease, currently at baseline -Creatinine this morning 1.5 - Apparent baseline creatinine is 1.7. - We will monitor creatinine intermittently. - Strict I/O. Daily weight. - Check PTH, abdominal ultrasound?complete, urine sodium, urine creatinine. - IV normal saline 100 mL/h Documented history of iron deficiency anemia - Continue Ferrous Sulfate Documented history of CHF, last ejection fraction from February 2025 is 60-65%. - Strict I/O. - Daily weight GERD - PPI Hyperlipidemia - Not currently on statin Hypertension - Continue home dosing Coreg, Losartan Obesity - The patient will be counseled regarding lifestyle medication - BMI 39.3 Dementia - Continue home dosing Memantine - Continue outpatient management per primary Hyper lipasemia. No symptoms/signs of pancreatitis present. We will monitor lipase level intermittently. Check abdominal ultrasound?complete. IV normal saline 100 mL/h History of bilateral renal lesion. - Check abdominal ultrasound?complete however the patient will need to schedule MRI of the abdomen with and without contrast with her primary care physician or a provider Anxiety/Depression - Supportive measures - Continue Lexapro Hypothyroidism - TSH 4.35 Insomnia - Melatonin 3mg PO HS Patient did very well overall after IV fluid hydration. Patient is at her baseline orientation x 2. Physical therapy and Occupational Therapy evaluation, recommendations for SNF, patient transfers to [facility] in stable condition to continue PT/OT. Patient is advised to continue home medications as previously prescribed, to work on good oral hydration. Patient will follow-up with primary care provider in 1 to 3 days of discharge. Take case management and coordination of discharge planning with patient and her daughter. Patient will need a referral for neurology follow-up and management of her dementia. All questions and concerns addressed with the patient and her daughter prior to discharge. Physical Exam Const: COMMON NORMALS: no acute distress, average body habitus and alert ORIENTATION/CONSCIOUSNESS: Yes oriented to person OTHER: Patient is orientated x 2 HENMT: COMMON NORMALS: normocephalic, Normal external nose present and moist oral mucous membranes HEAD & SCALP: normocephalic NOSE: Normal external nose present Eye: COMMON NORMALS: Equal, round and reactive pupils present PUPIL: Yes Equal, round and reactive pupils present Neck/C-Spine: COMMON NORMALS: no JVD Resp: COMMON NORMALS: normal respiratory effort, No retractions and clear to auscultation bilaterally AUSCULTATION: clear to auscultation bilaterally Cardio: COMMON NORMALS: no JVD, regular rhythm, S1 normal heart sound present and S2 normal heart sound present RHYTHM: regular rhythm HEART SOUNDS: S1 normal heart sound present and S2 normal heart sound present GI: COMMON NORMALS: Normal to inspection, nondistended, normoactive bowel sounds present Extremity: COMMON NORMALS: normal to inspection and full ROM Neuro: SENSORIUM/ORIENTATION: Yes alert, Yes oriented to person, Yes Orientation impaired and Yes other (Generalized weakness) Psych: COMMON NORMALS: cooperative and speech normal SPEECH: Yes normal speech JUDGEMENT: questionable Skin: COMMON NORMALS: no rashes or lesions noted and turgor normal GENERAL SKIN EXAM: no rashes or lesions noted and turgor normal Discharge Data Studies Completed and Pending Completed Studies During Hospitalization Category Date Time Status CT head wo con* [id number] Stat Cat Scan 05/31/25 18:27 Completed XR chest 1V portable [id number] Stat Exams 05/31/25 18:40 Completed US abdomen complete* [id number] Stat Ultrasound 06/01/25 20:33 Completed Pending at discharge Category Date Time Status Blood Culture Stat Lab 05/31/25 19:02 Results CBC Auto Diff [Complete Blood Count w/Auto] AM LABS Lab 06/04/25 07:15 Ordered Comprehensive Metabolic Panel AM LABS Lab 06/04/25 07:15 Ordered Magnesium AM LABS Lab 06/04/25 07:15 Ordered Radiology Impressions Head CT 05/31/25 18:27 IMPRESSION: No acute intracranial posttraumatic changes. Chest X-Ray 05/31/25 18:40 IMPRESSION: 1. No acute cardiopulmonary process. 2. Moderate degenerative change in the glenohumeral joint. 3. Cardiomegaly. Abdomen Ultrasound 06/01/25 20:33 IMPRESSION: 1. Benign left hepatic lobe cyst. 2. Benign bilateral renal cysts. 3. Otherwise unremarkable. Laboratory Results WBC 4.73 10^3/uL (3.29-11.43) 06/03/25 07:24 RBC 3.42 10^6/uL (3.85-5.65) L 06/03/25 07:24 Hgb 10.40 g/dL (11.27-16.99) L 06/03/25 07:24 Hct 31.9 % (36-47) L 06/03/25 07:24 MCV 93.3 fl (85-98) 06/03/25 07:24 MCH 30.4 pg (27-33) 06/03/25 07:24 MCHC 32.6 g/dL (30-55) 06/03/25 07:24 RDW 15.0 % (12.1-15.1) 06/03/25 07:24 Plt Count 181 10^3/cmm (157-399) 06/03/25 07:24 MPV 9.5 fL (7.4-10.4) 06/03/25 07:24 Neut % (Auto) 58.3 % 06/03/25 07:24 Lymph % (Auto) 20.9 % 06/03/25 07:24 [place] % (Auto) 12.5 % 06/03/25 07:24 Eos % (Auto) 6.8 % 06/03/25 07:24 Baso % (Auto) 1.3 % 06/03/25 07:24 Neut # (Auto) 2.76 10^3/uL (1.8-7.7) 06/03/25 07:24 Lymph # (Auto) 1.0 10^3/uL (0.8-4.8) 06/03/25 07:24 [place] # (Auto) 0.6 10^3/uL (0.2-0.9) 06/03/25 07:24 Eos # (Auto) 0.3 10^3/uL (0.0-0.8) 06/03/25 07:24 Baso # (Auto) 0.1 10^3/uL (0.0-0.1) 06/03/25 07:24 Nucleated RBC % (auto) 0 % 06/03/25 07:24 Nucleated RBCs # 0.0 /100WBC 06/03/25 07:24 Sodium 139 mmol/L (136-145) 06/03/25 07:24 Potassium 4.1 mmol/L (3.5-5.1) 06/03/25 07:24 Chloride 113 mmol/L (98-107) H 06/03/25 07:24 Carbon Dioxide 21 mmol/L (22-29) L 06/03/25 07:24 Anion Gap 9.1 (5-19) 06/03/25 07:24 BUN 20 mg/dL (8-23) 06/03/25 07:24 Creatinine 1.5 mg/dL (0.5-0.9) H 06/03/25 07:24 GFR Calculation Not Reportable 06/03/25 07:24 Glucose 84 mg/dL (65-115) 06/03/25 07:24 POC Glucose 78 mg/dL (70-110) 06/01/25 06:25 Calculated Osmolality 290 mOsm/kg (285-295) 06/03/25 07:24 Lactic Acid 0.8 mmol/L (0.5-2.2) 05/31/25 18:16 Calcium 8.1 mg/dL (8.5-10.5) L 06/03/25 07:24 Phosphorus 2.9 mg/dL (2.5-4.5) 06/01/25 03:08 Magnesium 1.7 mg/dL (1.7-2.3) 06/03/25 07:24 Total Bilirubin 0.3 mg/dL (0.15-1.2) 06/03/25 07:24 AST 24 U/L (0-32) 06/03/25 07:24 ALT 26 U/L (0-33) 06/03/25 07:24 Alkaline Phosphatase 67 U/L (35-105) 06/03/25 07:24 Troponin T Baseline 27 ng/L (0-10) H 05/31/25 18:16 Troponin T 120 Minute 24.69 ng/L (0-10) H 05/31/25 20:30 Delta Troponin T -2.31 ABS# (0-10) L 05/31/25 20:30 Troponin T Hi Sens 6Hr 27.59 ng/L (0-10) H 06/01/25 00:20 Troponin T Hi Sens 6Hr Delta 0.59 ng/L (0-12) 06/01/25 00:20 NT-Pro-B Natriuret Pep 625 pg/mL (0-450) H 05/31/25 18:16 Total Protein 4.9 g/dL (6.6-8.7) L 06/03/25 07:24 Albumin 3.1 g/dL (3.5-5.2) L 06/03/25 07:24 Globulin 1.8 g/dL (1.3-4.6) 06/03/25 07:24 Lipase 68 U/L (13-60) H 06/01/25 03:08 Vitamin B12 533 pg/mL (232-1245) 05/31/25 18:16 25-OH Vitamin D Total 33 ng/mL (30-100) 05/31/25 18:16 25-OH Vitamin D Total Cancelled 05/31/25 18:16 Folate 7.5 ng/mL (4.8-37.3) 05/31/25 18:16 TSH 4.35 uIU/mL (0.27-4.20) H 05/31/25 18:16 Free T4 1.04 ng/dL (0.82-1.77) 05/31/25 18:16 PTH Intact 42.2 pg/mL (15-65) 05/31/25 18:16 Calcium (PTH Intact) 9.3 mg/dL (8.5-10.5) 05/31/25 18:16 Urine Color Yellow (Yellow) 05/31/25 19:24 Urine Appearance Clear (CLEAR) 05/31/25 19:24 Urine pH 5.5 (5-7) 05/31/25 19:24 Ur Specific [place] 1.011 (1.005-1.030) 05/31/25 19:24 Urine Protein Negative (Negative) 05/31/25 19:24 Urine Glucose (UA) Negative (Normal) 05/31/25 19:24 Urine Ketones Negative (Negative) 05/31/25 19:24 Urine Blood Negative (Negative) 05/31/25 19:24 Urine Nitrate Negative (Negative) 05/31/25 19:24 Urine Bilirubin Negative (Negative) 05/31/25 19:24 Urine Urobilinogen 0.2 mg/dL (Negative) 05/31/25 19:24 Ur Leukocyte Esterase Negative (Negative) 05/31/25 19:24 Urine RBC 0-2 /hpf (0-2) 05/31/25 19:24 Urine WBC 0-5 /hpf (0-5) 05/31/25 19:24 Ur Squamous Epith Cells 6-10 /hpf (0-5) 05/31/25 19:24 Amorphous Sediment Not Reportable 05/31/25 19:24 Urine Bacteria None seen /hpf (NONE) 05/31/25 19:24 Hyaline Casts 0.81 /lpf 05/31/25 19:24 Ur Random Sodium 67 mmol/L 05/31/25 19:24 Urine Creatinine 58 mg/dL (28-217) 05/31/25 19:24 Vitals Last Vital Signs Temp 97.5 F L 06/03/25 07:30 Pulse 55 L 06/03/25 07:30 Resp 16 06/03/25 07:30 BP 164/90 06/03/25 07:30 Pulse Ox 96 06/03/25 07:30 O2 Del Method Room Air 06/03/25 07:30 Discharge Plan Discharge Patient Disposition: er [facility] Condition: Stable Prescriptions: Continued melatonin 1 mg tablet,disintegrating 0.5 mg PO BEDTIME nitroglycerin 0.4 mg tablet, sublingual 0.4 mg sublingual Q5M PRN (Reason: chest pain) Qty: 20 1RF Rx Instructions: do not exceed [address] under tongue carvedilol 25 mg tablet 37.5 mg PO BID Rx Instructions: must administer with a meal/food acetaminophen [Tylenol] 325 mg tablet 325 mg PO QID PRN (Reason: Pain) ferrous sulfate 325 mg (65 mg iron) tablet 325 mg PO EVERY OTHER DAY furosemide [Lasix] 20 mg tablet 20 mg PO DAILY PRN (Reason: Edema) cetirizine [Zyrtec] 10 mg tablet 10 mg PO DAILY PRN (Reason: allergies) escitalopram oxalate [Lexapro] 10 mg tablet 20 mg PO DAILY Qty: 90 1RF omeprazole 40 mg capsule,delayed release(DR/EC) 40 mg PO BID Qty: 60 1RF vancomycin 125 mg capsule 125 mg PO Q6H 10 Days Qty: 40 0RF memantine [Namenda] 10 mg tablet See Rx Instructions PO BID Qty: 60 1RF Rx Instructions: take 1/2 tablet BID x 7 days then full tablet BID orally twice a day thereafter; losartan 100 mg tablet 100 mg PO DAILY Held spironolactone 25 mg tablet 12.5 mg PO DAILY Hold Instructions: Resume on 06/17/25. Reviewed with primary care provider before resuming Discontinued mupirocin [Centany] 2 % ointment 1 applic topical TID 7 Days Qty: 22 0RF nystatin 100,000 unit/gram powder 1 applic topical QID 14 Days Qty: 60 2RF trospium 20 mg tablet 20 mg PO BID Rx Instructions: administer on an empty stomach sulfamethoxazole-trimethoprim [Bactrim DS] 800-160 mg tablet 1 tab PO BID 7 Days Qty: 14 0RF Discharge Order = DC NOW: Discharge Order (Routine); Ordered 06/03/25 Ordered By: Cheryl Castro Referrals: [facility] [Outside] Anel Johnson MD [Physician, Neurology] - 11/05/25 9:00 am Alfonso Moreno MD [Primary Care Provider, Family Practice] - 06/09/25 9:30 am Discharge Diet: Cardiac Discharge Activity: Resume usual activity Patient Instructions: Dehydration (DC), Acute Kidney Injury (GEN), Opioid Safety, Patient Portal & Armando Instructions Discharge Attestations Time Spent in Discharge Care*: greater than 30 min Quality Metrics Clinical Quality Measures [ No reported AMI, CVA or VTE this stay] Coding Level of Care Code 82343 Diagnoses Dementia F03.90 TETE (acute kidney injury) N17.9 Memory impairment R41.3 Moderate major depression F32.1 GERD (gastroesophageal reflux disease) K21.9 Hypertension I10 Chronic congestive heart failure, unspecified heart failure type I50.9 Heart failure chronicity: chronic Heart failure type: unspecified Hyperlipemia E78.5
--- NOTE | 2025-06-03 09:21 | PC.SOCIAL ---
IMM Update pg 2 of IMM Updated and reviewed w/ patient. Copy provided and copy dated, initialed and placed in chart.
[2025-06-03 11:14] VITALS: BP 139/67; PULSE 58; RESP 16; TEMP 36.6; O2SAT 97
[2025-06-03 12:05] VITALS: BP 164/90; PULSE 55; RESP 16; TEMP 36.4; O2SAT 96
== END 2025-06-03 11:45 | disposition skilled nursing facility (03) | DRG 683 ==
LOC: ER 19:15 → MEDSURG 06-01 00:31
PROVIDERS: Family Medicine; Admitting Provider Internal Medicine; Emergency Provider Emergency Medicine; PCP Family Medicine; Visit Provider Registered Nurse
DX: N17.9 Acute kidney failure, unspecified (principal); E87.1 Hypo-osmolality and hyponatremia; I13.0 Hypertensive heart and chronic kidney disease with heart failure and stage 1 through stage 4 chronic kidney disease, or unspecified chronic kidney disease; I50.32 Chronic diastolic (congestive) heart failure; E87.20 Acidosis, unspecified; F03.90 Unspecified dementia, unspecified severity, without behavioral disturbance, psychotic disturbance, mood disturbance, and anxiety; F32.9 Major depressive disorder, single episode, unspecified; K21.9 Gastro-esophageal reflux disease without esophagitis; N18.32 Chronic kidney disease, stage 3b; E78.5 Hyperlipidemia, unspecified; E86.0 Dehydration; E87.5 Hyperkalemia; E66.9 Obesity, unspecified; Z68.39 Body mass index [BMI] 39.0-39.9, adult; N28.9 Disorder of kidney and ureter, unspecified; F41.9 Anxiety disorder, unspecified; F32.A Depression, unspecified; E03.9 Hypothyroidism, unspecified; D50.9 Iron deficiency anemia, unspecified; Z96.659 Presence of unspecified artificial knee joint; Z96.661 Presence of right artificial ankle joint; K22.70 Barrett's esophagus without dysplasia; M81.0 Age-related osteoporosis without current pathological fracture; W18.30XA Fall on same level, unspecified, initial encounter; G47.00 Insomnia, unspecified; Z87.440 Personal history of urinary (tract) infections
CPT/HCPCS: 36415; 36416; 70450; 71045; 76700; 80048; 80053; 81001; 82306; 82310; 82575; 82607; 82746; 82962; 83605; 83690; 83735; 83880; 83970; 84100; 84300; 84439; 84443; 84484; 85025; 87040; 93005; 96361; 96374; 96375; 97161; 97166; 99285; J0612; J1815; J2405; J7030; J7799; J9999

== ENCOUNTER 2025-06-24 15:10 | Observation (INO) | payer MEDICARE, SELFPAY ==
[2025-06-24] VITALS (17 sets, daily range): BP systolic 107–178; BP diastolic 50–112; PULSE 62–83; RESP 16–20; TEMP 36.7–37.1; O2SAT 91–96; BMI 38.1
--- NOTE | 2025-06-24 14:58 | XR_ITS ---
WS: [id number] XR chest 1V portable [id number] REASON FOR EXAM: dyspnea/cough FINDINGS: Chest is unchanged compared to 05/31/2025. Moderate tortuosity and ectasia of the thoracic aorta. Moderate hiatal hernia. Cardiomegaly. Calcified granulomas disease bilaterally. No acute pulmonary parenchymal or pleural abnormality is identified. Mild dextroscoliosis with significant degenerative spondylosis of the thoracic spine. Probable complete rotator cuff tears bilaterally with previous repair on the left. XR/XR chest 1V portable [id number] IMPRESSION: Cardiomegaly. Stable chest with no acute abnormality.
--- NOTE | 2025-06-24 14:58 | ECG_ITS ---
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 Measurements Intervals [place] Rate: 70 P: 18 DC: 152 QRS: -5 QRSD: 94 T: 3 QT: 441 QTc: 476 Interpretive Statements SINUS RHYTHM WITH SINUS ARRHYTHMIA INFERIOR MYOCARDIAL INFARCTION , PROBABLY OLD [40+ ms Q WAVE AND/OR ST/T ABNORMALITY IN II/aVF] Compared to ECG 06/02/2025 20:20:04 Sinus bradycardia no longer present Myocardial infarct finding still present Electronically Signed On 06-26-2025 17:32:56 MOSAICIST by Sherri Benítez M.D. [email or web address]
[2025-06-24 15:17] LABS: Hematocrit 40.1 % (36-47); Hemoglobin 13.10 g/dL (11.27-16.99); Mean Corpuscular HGB Conc 32.7 g/dL (30-55); Mean Corpuscular Hemoglobin 29.9 pg (27-33); Mean Corpuscular Volume 91.6 fl (85-98); Nucleated Red Blood Cells % 0 %; Platelet Count 240 10^3/cmm (157-399); Red Blood Count 4.38 10^6/uL (3.85-5.65); White Blood Count 9.21 10^3/uL (3.29-11.43)
--- NOTE | 2025-06-24 15:33 | W.ED.AMS ---
HPI - Altered Mental Status General: Chief Complaint: Altered Mental Status Stated Complaint: ams History of Present Illness: 80-year-old female presents emergency room [facility] with reports of altered mental status sudden onset of confusion. At time patient was seen by EMS her symptoms had resolved. She was coming back from the restroom and had passed out briefly. She does have a history of dementia. Lives at home with her family. Related Data Home Medications ?Medication ?Instructions ?Recorded ?Confirmed acetaminophen 325 mg tablet 325 mg PO QID PRN Pain 01/16/25 05/31/25 (Tylenol) carvedilol 25 mg tablet 37.5 mg PO BID 01/16/25 05/31/25 ferrous sulfate 325 mg (65 mg 325 mg PO EVERY OTHER DAY 01/16/25 05/31/25 iron) tablet furosemide 20 mg tablet (Lasix) 20 mg PO DAILY PRN Edema 01/16/25 05/31/25 spironolactone 25 mg tablet 12.5 mg PO DAILY 01/16/25 05/31/25 Held on 06/03/25. Instructions: Resume on 06/17/25. Reviewed with primary care provider before resuming melatonin 1 mg disintegrating 0.5 mg PO BEDTIME 03/24/25 05/31/25 tablet cetirizine 10 mg tablet (Zyrtec) 10 mg PO DAILY PRN allergies 04/28/25 05/31/25 losartan 100 mg tablet 100 mg PO DAILY 05/31/25 05/31/25 Previous Rx's ?Medication ?Instructions ?Recorded nitroglycerin 0.4 mg sublingual 0.4 mg sublingual Q5M PRN chest 04/15/25 tablet pain #20 tabs escitalopram oxalate 10 mg tablet 20 mg (2 x 10 mg) PO DAILY #90 tabs 04/28/25 (Lexapro) omeprazole 40 mg capsule,delayed 40 mg PO BID #60 caps 04/28/25 release vancomycin 125 mg capsule 125 mg PO Q6H 10 days #40 caps 05/25/25 memantine 10 mg tablet (Namenda) See Rx Instructions PO BID #60 tabs 05/29/25 Allergies Allergy/AdvReac Type Severity Reaction Status Date / Time Penicillins Allergy Unknown Verified 05/29/25 08:40 [facility] PFSH: Medical History (Updated 06/01/25 @ 18:04 by Pipe Lind DO) Precordial pain Nodule of kidney Moderate major depression Nephrolithiasis CKD stage 3b, GFR 30-44 ml/min GERD (gastroesophageal reflux disease) Osteoporosis Hypothyroid [place] esophagus Hiatal hernia Arthritis Hypertension Chronic congestive heart failure, unspecified heart failure type Hyperlipemia Surgical History History of right ankle joint replacement Hx of total knee replacement Hx of rotator cuff surgery Family History Father Cancer Hypertension Mother Heart disease Hypertension Sister Hypertension Social History Smoking and tobacco/nicotine status: never used tobacco/nicotine Alcohol intake: former Substance/Drug Use: never Course Vital Signs: Vital signs: Vital Signs Temperature 98.8 F 06/24/25 15:09 Pulse Rate 69 06/24/25 15:24 Respiratory Rate 16 06/24/25 15:09 Blood Pressure 149/97 06/24/25 15:24 Pulse Oximetry 94 06/24/25 15:24 Oxygen Delivery Me thod Room Air 06/24/25 15:09 MDM - Altered Mental Status Lab Data 06/24/25 14:46 06/24/25 14:46 Radiology Impressions Chest X-Ray 06/24/25 14:58 IMPRESSION: Cardiomegaly. Stable chest with no acute abnormality. Laboratory Results WBC 9.21 10^3/uL (3.29-11.43) 06/24/25 14:46 RBC 4.38 10^6/uL (3.85-5.65) 06/24/25 14:46 Hgb 13.10 g/dL (11.27-16.99) 06/24/25 14:46 Hct 40.1 % (36-47) 06/24/25 14:46 MCV 91.6 fl (85-98) 06/24/25 14:46 MCH 29.9 pg (27-33) 06/24/25 14:46 MCHC 32.7 g/dL (30-55) 06/24/25 14:46 RDW 14.4 % (12.1-15.1) 06/24/25 14:46 Plt Count 240 10^3/cmm (157-399) 06/24/25 14:46 MPV 9.7 fL (7.4-10.4) 06/24/25 14:46 Neut % (Auto) 84.4 % 06/24/25 14:46 Lymph % (Auto) 5.3 % 06/24/25 14:46 [place] % (Auto) 8.0 % 06/24/25 14:46 Eos % (Auto) 1.0 % 06/24/25 14:46 Baso % (Auto) 0.8 % 06/24/25 14:46 Neut # (Auto) 7.77 10^3/uL (1.8-7.7) H 06/24/25 14:46 Lymph # (Auto) 0.5 10^3/uL (0.8-4.8) L 06/24/25 14:46 [place] # (Auto) 0.7 10^3/uL (0.2-0.9) 06/24/25 14:46 Eos # (Auto) 0.1 10^3/uL (0.0-0.8) 06/24/25 14:46 Baso # (Auto) 0.1 10^3/uL (0.0-0.1) 06/24/25 14:46 Nucleated RBC % (auto) 0 % 06/24/25 14:46 Nucleated RBCs # 0.0 /100WBC 06/24/25 14:46 Discharge Plan Discharge Condition: Stable Prescriptions: No Action melatonin 1 mg tablet,disintegrating 0.5 mg PO BEDTIME nitroglycerin 0.4 mg tablet, sublingual 0.4 mg sublingual Q5M PRN (Reason: chest pain) Qty: 20 1RF Rx Instructions: do not exceed [address] under tongue carvedilol 25 mg tablet 37.5 mg PO BID Rx Instructions: must administer with a meal/food spironolactone 25 mg tablet 12.5 mg PO DAILY acetaminophen [Tylenol] 325 mg tablet 325 mg PO QID PRN (Reason: Pain) ferrous sulfate 325 mg (65 mg iron) tablet 325 mg PO EVERY OTHER DAY furosemide [Lasix] 20 mg tablet 20 mg PO DAILY PRN (Reason: Edema) cetirizine [Zyrtec] 10 mg tablet 10 mg PO DAILY PRN (Reason: allergies) escitalopram oxalate [Lexapro] 10 mg tablet 20 mg PO DAILY Qty: 90 1RF omeprazole 40 mg capsule,delayed release(DR/EC) 40 mg PO BID Qty: 60 1RF vancomycin 125 mg capsule 125 mg PO Q6H 10 Days Qty: 40 0RF memantine [Namenda] 10 mg tablet See Rx Instructions PO BID Qty: 60 1RF Rx Instructions: take 1/2 tablet BID x 7 days then full tablet BID orally twice a day thereafter; losartan 100 mg tablet 100 mg PO DAILY Referrals: Alfonso Moreno MD [Primary Care Provider, Family Practice] Patient Instructions: Altered Mental Status (ED) Print Language: Swedish Coding Level of Care Code ED Wax Pumper for Keith Garza
[2025-06-24 15:39] LABS: Alanine Aminotransferase 11 U/L (0-33); Albumin Level 3.7 g/dL (3.5-5.2); Alkaline Phosphatase 100 U/L (35-105); Anion Gap 16.0 (5-19); Aspartate Amino Transferase 14 U/L (0-32); Blood Urea Nitrogen 34 mg/dL (8-23); Calcium 9.0 mg/dL (8.5-10.5); Carbon Dioxide 23 mmol/L (22-29); Chloride 101 mmol/L (98-107); Globulin 3.2 g/dL (1.3-4.6); Glucose 151 mg/dL (65-115); Osmolality Calculated 293 mOsm/kg (285-295); Potassium 4.0 mmol/L (3.5-5.1); Sodium 136 mmol/L (136-145); Total Protein 6.9 g/dL (6.6-8.7)
[2025-06-24 16:49] LABS: Glucose Urine UA Negative (Normal); Nitrate Urine Negative (Negative); Specific Gravity, Urine 1.016 (1.005-1.030)
[2025-06-24 16:51] LABS: Add Urine Microscopic? YES; Universal Test for UA Present (0)
[2025-06-24 17:02] LABS: UA Slide Review UA Slide Review Perf
--- NOTE | 2025-06-24 17:06 | CTR_ITS ---
PROCEDURE INFORMATION: Exam: CT Head Without Contrast Exam date and time: 06/24/2025 5:15 PM Age: 80 years old Clinical indication: Altered mental status/memory loss; Additional info: Syncope, altered mental status TECHNIQUE: Imaging protocol: Computed tomography of the head without contrast. Radiation optimization: All CT scans at this facility use at least one of these dose optimization techniques: automated exposure control; mA and/or kV adjustment per patient size (includes targeted exams where dose is matched to clinical indication); or iterative reconstruction. COMPARISON: CT head wo con* [id number] 05/31/2025 6:37 PM RADIATION DOSE METRICS: Total DLP (mGy-cm): 1016.88 FINDINGS: Brain: No acute hemorrhage, edema, or mass effect. Areas of periventricular and subcortical hypoattenuation likely reflecting chronic microvascular ischemic changes given the patient's age. Cerebral ventricles: Generalized age-related cerebral volume loss. No hydrocephalus. Paranasal sinuses: Right maxillary and ethmoid sinus mucosal thickening. Mastoid air cells: Visualized mastoid air cells are well aerated. Orbital cavities: Bilateral lens replacement. Bones: Unremarkable. No acute fracture. Soft tissues: Unremarkable. CT/CT head wo con* [id number] IMPRESSION: 1. No acute hemorrhage, edema, or mass effect. 2. Extensive chronic microvascular ischemic changes. 3. Generalized age-related cerebral volume loss
--- OUTSIDE RECORDS SUMMARY | 2025-06-24 17:57 | XMS_ITS ---
Author Organization [facility] are Care Team Providers Care Chimney Builder Brick Name Role Phone Irwin Freeman Unavailable Unavailable Allergies and adverse reactions Code CodeSystem Substance Reaction Severity StartDate Concern Status 7984 RXNORM Penicillin Unknown 06/03/2025 active Care Team Name Role Address Phone Organization Dates Irwin Freeman PCP [address], [address] (Office): [facility] 06/03/2025 - 06/21/2025 Encounters Encounter Type Code Code System Description Performer Discharge Disposition Service Delivery Location Date Ambulatory Encounter CPT Code = [id number] Heart failure Marie [place] Discharge to [facility] Address: [address] [place] [address]. 06/03 Ambulatory Encounter CPT Code = [id number] Metabolic acidosis [facility] Discharge to [facility] Address: [address] [place] [address]. 06/03 Ambulatory Encounter CPT Code = [id number] Hypo-osmolality and or hyponatremia [facility] Discharge to [facility] Address: [address] [place] [address]. 06/03 Ambulatory Encounter CPT Code = [id number] Chronic kidney disease stage 3 [facility] Discharge to [facility] Address: [address] [place] [address]. 06/03 Ambulatory Encounter CPT Code = [id number] Hyperkalemia [facility] Discharge to [facility] Address: [address] [place] [address]. 06/03 Ambulatory Encounter CPT Code = [id number] Hypertensive heart failure [facility] Discharge to [facility] Address: [address] [place] [address]. 06/03 Ambulatory Encounter CPT Code = [id number] Dementia [facility] Discharge to [facility] Address: [address] [place] [address]. 06/03 Ambulatory Encounter CPT Code = [id number] Generalized anxiety disorder [facility] Discharge to [facility] Address: [address] [place] [address]. 06/03 Ambulatory Encounter CPT Code = [id number] Hypothyroidism Marie [place] Discharge to [facility] Address: [address] [place] [address]. 06/03 Ambulatory Encounter CPT Code = [id number] Diverticular disease Marie Wayne Discharge to [facility] Address: [address] [place] [address]. 06/03 Ambulatory Encounter CPT Code = [id number] Dehydration Marie Wayne Discharge to [facility] Address: [address] [place] [address]. 06/03 Ambulatory Encounter CPT Code = [id number] Anemia Marie Wayne Discharge to [facility] Address: [address] [place] [address]. 06/03 Ambulatory Encounter CPT Code = [id number] Insomnia Marie Wayne Discharge to [facility] Address: [address] [place] [address]. 06/03 Ambulatory Encounter CPT Code = [id number] Gastroesophageal reflux disease without esophagitis Marie Wayne Discharge to [facility] Address: [address] [place] [address]. 06/03 Ambulatory Encounter CPT Code = [id number] Osteoporosis Marie Wayne Discharge to [facility] Address: [address] [place] [address]. 06/03 Ambulatory Encounter CPT Code = [id number] Moderate recurrent major depression Marie Wayne Discharge to [facility] Address: [address] [place] [address]. 06/03 Goals Section Goals Description Status Target Date All goals will be reviewed a nd updated as needed with completion of the assessment process of the [facility] unless otherwise stated in the individualized goal Active 09/03/2025 Patirica will improve curren t level of function in ADLs through the review date. Resident will be able to independently care for herself at home. Active 09/03/2025 Resident Will Achieve Fluid Balance Active 09/03/2025 Resident Will Be Free of Signs / Symptoms of Dep ression Active 09/03/2025 Resident Will Have Effective Cardiac Function Ac tive 09/03/2025 Resident Will Maintain A Stable Weight Active 09/03/2025 Resident Will Maintain an Optimum Activity Level Active 09/03/2025 Resident Will Show No Evidence of Worsening Anem ia Active 09/03/2025 Resident Will Show No Signs / Symptoms of Infect ion Active 09/03/2025 Resident will maintain the h ighest practical level of mental, physical and psychosocial well-being throughout duration of isolation. Active 09/03/2025 Resident will not have adver se effects r/t usage of medications with Black Box Warnings. Active 09/03/2025 The resident will be free of any discomfort or adverse side effects of antibiotic therapy through the review date. Active 09/03/2025 The resident will be free of minor injury throug h the review date. Active 09/03/2025 The resident will be free of symptoms of dehydration and maintain moist mucous membranes, good skin turgor. Active 09/03/2025 The resident will maintain c urrent level of cognitive function through the review date. Active 09/03/2025 The resident will not sustai n serious injury through the review date. Active 09/03/2025 The resident will remain jeevan e from or at a level of discomfort acceptable to the resident through the review date. Active The resident will remain jeevan e of injuries or complications related to osteoporosis through review date Active 09/03/2025 The resident will verbalize adequate relief of pain or ability to cope with incompletely relieved pain through the review date. Active 09/03/2025 Functional Status Functional Condition Code Code System Date Dependence on Cane [id number] SNOMED CT Code Name Recorded Time Value Entered By Ambulation 06/20/2025 Independent [place] Ambulation 06/20/2025 Independent [place] Ambulation 06/20/2025 Independent [place] Ambulation 06/20/2025 Independent [place] Bathing 06/15/2025 Limited Assistance - Dressing 06/20/2025 Total Dependence [place] Feeding or Eating 06/20/2025 Independent mahin Toileting 06/20/2025 Independent mahin Transferring 06/20/2025 Supervision mahin Medications Section Medication Name Status Code CodeSystem Dose Route Frequency Admin Type Sig Text Start Date End Date Indication Nitroglycer in Tablet Sublingual 0.4 MG active 9 RXNORM 1 table t Sublin gual as needed PRN Give 1 table t subli ngual ly every 5 minut es as neede d for chest pain or other sighn s/sym ptoms of acute angin a may repea t every 5 minut es x 2. If chest pain/ acute angin a is not relie chau after two doses of nitro glyce rin, unles s contr [place] to advan ce direc tives call 911; notif y provi ishmael immed iatel y. 2024 - chest pain or other sighns/symp toms of acute angina Escitalopra m Oxalate Oral Tablet 10 MG active 45448 2 RXNORM 2 table t Oral one time a day Routin e Give 2 table t by mouth one time a day for MAJOR DEPRE SSIVE DISOR ISHMAEL, RECUR RENT, MODER ATE 2024 - MAJOR DEPRESSIVE DISORDER, RECURRENT, MODERATE Memantine HCl Oral Tablet 10 MG active 13561 1 RXNORM 1 table t Oral two times a day Routin e Give 1 table t by mouth two times a day for UNSPE CIFIE D DEMEN TIA, UNSPE CIFIE D SEVER ITY, WITHO UT BEHAV IOR 2024 - UNSPECIFIED DEMENTIA, UNSPECIFIED SEVERITY, WITHOUT BEHAVIOR Vancomycin HCl Oral Capsule 125 MG aborted 18671 0 RXNORM 1 capsu le Oral every 6 hours Routin e Give 1 capsu le by mouth every 6 hours for DIVER TICUL ITIS OF INTES KVNG, PART UNSPE CIFIE D, WITHO UT PERFO 06/04 DIVERTICULI TIS OF INTESTINE, PART UNSPECIFIED , WITHOUT PERFO Omeprazole Oral Capsule Delayed Release 40 MG active 9 RXNORM 1 capsu le Oral two times a day Routin e Give 1 capsu le by mouth two times a day for GASTR O-ESO PHAGE AL REFLU X DISEA SE WITHO UT ESOPH AGITI S 2024 - GASTRO-ESOP HAGEAL REFLUX DISEASE WITHOUT ESOPHAGITIS Tuberculin PPD Solution 5 UNIT/0.1ML active 38570 2 RXNORM 0.1 ml Intrad ermal one time a day Routin e Injec t 0.1 ml intra derma lly one time a day for TB (Tube rculo sis) Scree lalit for 1 Admin istra tions AND Injec t 0.1 ml intra derma lly one time a day every 14 day(s ) for TB (Tube rculo sis) Scree lalit for 1 Admin istra tions 06/05 TB (Tuberculos is) Screening 33586 2 RXNORM 0.1 ml Intrad ermal one time a day Routin e Injec t 0.1 ml intra derma lly one time a day for TB (Tube rculo sis) Scree lalit for 1 Admin istra tions AND Injec t 0.1 ml intra derma lly one time a day every 14 day(s ) for TB (Tube rculo sis) Scree lalit for 1 Admin istra tions 07/02 TB (Tuberculos is) Screening Furosemide Oral Tablet 20 MG aborted 30494 9 RXNORM 1 table t Oral as needed PRN Give 1 table t by mouth every 24 hours as neede d for HEART FAILU RE, UNSPE CIFIE D 06/11 HEART FAILURE, UNSPECIFIED Losartan Potassium Oral Tablet 100 MG active 07206 0 RXNORM 1 table t Oral one time a day Routin e Give 1 table t by mouth one time a day for HYPER TENSI VE HEART DISEA SE WITH HEART FAILU RE 2024 - HYPERTENSIV E HEART DISEASE WITH HEART FAILURE Acetaminoph en Oral Tablet 325 MG active 58581 2 RXNORM 1 table t Oral as needed PRN Give 1 table t by mouth every 6 hours as neede d for Pain or fever 2024 - Pain or fever Cetirizine HCl Oral Tablet 10 MG active 78636 78 RXNORM 1 table t Oral as needed PRN Give 1 table t by mouth every 24 hours as neede d for Seaso nal aller gies 2024 - Seasonal allergies Carvedilol Oral Tablet 12.5 MG active 2 RXNORM 37.5 mg Oral two times a day Routin e Give 37.5 mg by mouth two times a day for HYPER TENSI VE HEART DISEA SE WITH HEART FAILU RE 2024 - HYPERTENSIV E HEART DISEASE WITH HEART FAILURE Ferrous Sulfate Oral Tablet 325 (65 Fe) MG active 32149 5 RXNORM 1 table t Oral one time a day Routin e Give 1 table t by mouth one time a day every other day for ANEMI A, UNSPE CIFIE D (D64. 9) 2024 - ANEMIA, UNSPECIFIED (D64.9) Memantine HCl Oral Tablet 5 [place] [address] 1 RXNORM 1 table t Oral two times a day Routin e Give 1 table t by mouth two times a day for UNSPE CIFIE D DEMEN TIA, UNSPE CIFIE D SEVER ITY, WITHO UT BEHAV IOR for 7 Days 06/11 UNSPECIFIED DEMENTIA, UNSPECIFIED SEVERITY, WITHOUT BEHAVIOR Melatonin Oral Tablet Disintegrat ing 1 MG active 0.5 table t Oral at bedtime Routin e Give 0.5 table t by mouth at bedti me for INSOM JEREMY, UNSPE CIFIE D 2024 - INSOMNIA, UNSPECIFIED Vancomycin HCl Oral Capsule 125 MG aborted 54449 0 RXNORM 1 capsu le Oral every 6 hours Routin e Give 1 capsu le by mouth every 6 hours for DIVER TICUL ITIS OF INTES KVNG, PART UNSPE CIFIE D, WITHO UT PERFO for 10 Days 06/04 DIVERTICULI TIS OF INTESTINE, PART UNSPECIFIED , WITHOUT PERFO Vancomycin HCl Oral Capsule [place] [address] 0 RXNORM 1 capsu le Oral every 6 hours Routin e Give 1 capsu le by mouth every 6 hours for DIVER TICUL ITIS OF INTES KVNG, PART UNSPE CIFIE D, WITHO UT PERFO for 2 Days 06/06 DIVERTICULI TIS OF INTESTINE, PART UNSPECIFIED , WITHOUT PERFO Trospium Chloride Oral Tablet 20 MG active 51103 0 RXNORM 20 mg Oral two times a day Routin e Give 20 mg by mouth two times a day for Overa ctive bladd er 2024 - Overactive bladder Mental Status Section Date Assessment Total Score Description 06/04/2025 BIMS 12 moderate cognit new impairment CAM 2 Delirium indica brielle PHQ-9 00 Insurance Providers Coverage Status Coverage Type Relationship to Subscriber Member Identifier Subscriber Identifier Group Identifier Payer Identifier and Other information 2025 Code: 1 Code System OID:[id number] .[id number]. 221.5 Code System Name: Source of Payment Typology (PHDNH) Display: Medicare Translation: Code: [place] Code System: OID:[id number] .1.448593.6. 255.1336 Code System Name: Insurance Type Code ([id number]) Display Name: Medicare Part A Code: SELF Code System Name: HL7 RoleCode Code System OID:[id number] .[id number] Display Name: Self [id number] Root: [id number] Address: 2025 Code: 349 Code System OID:[id number] .1.571084.3. 221.5 Code System Name: Source of Payment Typology (PHDNH) Display: Other Translation: Code: C1 Code System: OID:[id number] .1.560530.6. 255.1336 Code System Name: Insurance Type Code ([id number]) Display Name: Commercial Insurance Code: SELF Code System Name: HL7 RoleCode Code System OID:[id number] .283072.5.111 Display Name: Self [id number] Root: [id number] Payer Name: [facility] Address: [id number] City: [place] State: [place] Country: [place] [facility] Telecom: [phone] Plan of Treatment Section Interventions Intervention Code Code System Display Name Proposed D ate Problems Problem # Description Date of onset Resolved Date Code CodeSystem Concern Status 1 DEHYDRATION 06/04/[address] active 2 ACUTE METABOLIC ACIDOSIS 06/03/[address] active 3 AGE-RELATED OSTEOPOROSIS WITHOUT CURRENT PATHOLOGICAL FRACTURE 06/03/[address] active 4 ANEMIA, UNSPECIFIED 06/03/[address] active 5 CHRONIC KIDNEY DISEASE, STAGE 3 UNSPECIFIED 06/03/[address] active 6 DIVERTICULITIS OF INTESTINE, PART UNSPECIFIED, WITHOUT PERFORATION OR ABSCESS WITHOUT BLEEDING 06/03/[address] active 7 GASTRO-ESOPHAGEAL REFLUX DISEASE WITHOUT ESOPHAGITIS 06/03/[address] active 8 GENERALIZED ANXIETY DISORDER 06/03/[address] active 9 HEART FAILURE, UNSPECIFIED 06/03/[address] active 10 HYPERKALEMIA 06/03/[address] activ e 11 HYPERTENSIVE HEART DISEASE WITH HEART FAILURE 06/03/[address] active 12 HYPO-OSMOLALITY AND HYPONATREMIA 06/03/[address] active 13 HYPOTHYROIDISM, UNSPECIFIED 06/03/[address] active 14 INSOMNIA, UNSPECIFIED 06/03/[address] active 15 MAJOR DEPRESSIVE DISORDER, RECURRENT, MODERATE 06/03/[address] active 16 UNSPECIFIED DEMENTIA, UNSPECIFIED SEVERITY, WITHOUT BEHAVIORAL DISTURBANCE, PSYCHOTIC DISTURBANCE, MOOD DISTURBANCE, AND ANXIETY 06/03/[address] active Reason for Referral No Reasons for Referral Entered Diagnostic Results Laboratory Test Results Code Code System Date Test Observation Result Interpretation Reference Range Status Notes 123-9 9999- 9 LOINC 06/07 BMP / Complet e Blood Count / Cogent- Completed Result for: Mila Hernández ( 7, F) 123-9 9999- 9 LOINC 06/06 Cogent- - Normal Final LP783 9-6 LOINC 06/07 Complet e Blood Count Completed Result for: Mila Hernández ( 7, F) 706-2 LOINC 06/06 BASO% Value: 1.2 Units: % Normal 0.1-1.2 Final 713-8 LOINC 06/06 EOS% Value: 4.7 Units: % Normal 0.7-5.8 Final 5905- 5 [facility] 06/06 MONO% Value: 8.1 Units: % Normal 4.7-12.5 Final 37816 -0 [facility] 06/06 LYMPH% Value: 11.0 Units: % Low 19.3-51.7 Final 770-8 [facility] 06/06 NEUT% Value: 74.7 Units: % High 34.0-71.1 Final 788-0 [facility] 06/06 RDW Value: 15.3 Units: % High 11.7-14.4 Final 4544- 3 [facility] 06/06 HCT Value: 36.3 Units: % Normal 34.1-44.9 Final 3097- 3 [facility] 06/07 BMP Completed Result for: Mila Hernández ( 7, F) 3097- 3 [facility] 06/06 BUN/CREAT RATIO Value: 19.1 Units: {calc} Normal 10-20 Final LP783 9-6 [facility] 06/07 Complet e Blood Count Completed Result for: Mila Hernández ( 7, F) 787-2 [facility] 06/06 MCV Value: 95.0 Units: fL High 79.4-94.8 Final 777-3 [facility] 06/06 MPV Value: 10.5 Units: fL Normal 9.4-12.3 Final 785-6 [facility] 06/06 MCHC Value: 31.7 Units: g/dL Low 32.2-35.5 Final 718-7 [facility] 06/06 HGB Value: 11.5 Units: g/dL Normal 11.2-15.7 Final LP783 9-6 [facility] 06/07 BMP Completed Result for: Mila Hernández ( 7, F) 12782 -3 [facility] 06/06 ANION GAP Value: 7.4 Units: mEq/L Low 8-16 Final 2951- 2 [facility] 06/06 SODIUM Value: 137 Units: mEq/L Normal 136-145 Final 2823- 3 [facility] 06/06 POTASSIUM Value: 4.4 Units: mEq/L Normal 3.5-5.1 Final 2074- 0 [facility] 06/06 CHLORIDE Value: 109 Units: mEq/L High 98-107 Final 2027- 9 [facility] 06/06 CARBON DIOXIDE (BICARB) Value: 25 Units: mEq/L Normal 21-31 Final 91182 -1 [facility] 06/06 CALCIUM Value: 8.4 Units: mg/dL Low 8.6-10.2 Final 3094- 0 [facility] 06/06 BLOOD UREA NITROGEN (BUN) Value: 34.0 Units: mg/dL High 7.0-25.0 Final 2345- 7 [facility] 06/06 GLUCOSE Value: 80 Units: mg/dL Normal 74-109 Final 2160- 0 [facility] 06/06 CREATININE Value: 1.78 Units: mg/dL High 0.6-1.3 Final 56429 -1 [facility] 06/06 Estimated GFR AA Value: 35.5 Units: mL/min/ {1.73_m 2} Low >60.0 Final 51154 -3 [facility] 06/06 Estimated GFR Value: 29.3 Units: mL/min/ {1.73_m 2} Low >60.0 Final LP783 9-6 [facility] 06/07 Complet e Blood Count Completed Result for: Mila Hernández ( 7, F) 785-6 [facility] 06/06 MCH Value: 30.1 Units: pg Normal 25.6-32.2 Final 777-3 [facility] 06/06 PLT Value: 257 Units: x10^3/u L Normal 182-369 Final 6690- 2 [facility] 06/06 WBC Value: 5.80 Units: x10^3/u L Normal 3.98-10.04 Final 704-7 [facility] 06/06 BASO# Value: 0.07 Units: x10^3/u L Normal 0.01-0.08 Final 711-2 [facility] 06/06 EOS# Value: 0.27 Units: x10^3/u L Normal 0.04-0.36 Final 742-7 [facility] 06/06 MONO# Value: 0.47 Units: x10^3/u L High 0.24-0.36 Final 736-9 [facility] 06/06 LYMPH# Value: 0.64 Units: x10^3/u L Low 1.18-3.74 Final 751-8 LOINC 06/06 NEUT# Value: 4.33 Units: x10^3/u L Normal 1.56-6.13 Final 789-8 LOINC 06/06 RBC Value: 3.82 Units: 10*6/uL Low 3.93-5.22 Final Social History Social History Observation Description Start Date End Date Code Code System Current Smoking Status Tobacco smoking consumption unknown [id number] SNOMED CT Sex Assigned At Female 1945 00612-5 [facility] Gender Identity Female [id number] [address] Sexual Orientation Heterosexual (finding) 49530322 SNOMED CT Vital Signs Code Code System Vitals Name Values and Units Timing Information 8462-4 [facility] Blood Pressure-Diastolic Value=91 Un its=mmHg 06/21/2025 8480-6 [facility] Blood Pressure-Systolic Uurfs=948 Un its=mmHg 06/21/2025 8867-4 [facility] Heart rate Value=68.0 Units=/min 12/2024 9279-1 [facility] Respiratory Rate Value=20.0 Units=/m in 06/20/2025 8310-5 [facility] Body Temperature Value=98.2 Units= F 06/20/2025 56106-8 [facility] O2 % BldC Oximetry Value=95.0 Units= % 06/20/2025 74456-0 [facility] Weight Xohar=076.0 Units=Lbs 10/2024 95690-1 INC Pain Level Value=0.0 06/16/2025 8302-2 [facility] Height Value=55.0 Units=Inches 06/03/2025
--- OUTSIDE RECORDS SUMMARY | 2025-06-24 17:57 | XMS_ITS | Data Portability ---
Author Organization [facility] Cameron [place] [facility] RafitaLMena [facility] Address [address] [address] Assessment No assessment recorded. Plan of Treatment Reminders Order Date Submit Date Provider Last Modified By Organization Details Last Modified Time Details Appointments None record ed. Lab None record ed. Referral None record ed. Procedures None record ed. Surgeries None record ed. Imaging None record ed. Medication Orders None record ed. Patient TargetsNo targets recorded. Patient Instructions Encounter Date Encounter Id Patient Instructions Last Modified By Organization Details Last Modified Time 06/04/2025 [id number] hospital records reviewed goal to get therapy and return home; no acute issues today; improving Not available 06/08/2025 15:40:14 Reason for Referral None Reported. Medical Equipment None Reported. Allergies Allergen ID Allergen Name Allergen Category Reaction Reaction Severity Criticality Documentation Date Start Date Code Code System Note Provider Name and Address Organization Details Recorded Time 35129 amlodipin e medicatio n Not available Not available Not available 06/04/20252022 66357 RxNorm Repor brielle by [facility] unrec ogniz ed react ion (text : Other (See Comme nts), code: 44458 5006) (from exter nal sourc e) Not Available chrissy - External Data Service - prod 14:35:50 47337 ampicilli n medicatio n Not available Not available Not available 06/04/20252018 733 RxNorm unrec ogniz ed react ion (text : .Unkn own, code: 00009 5006) (from exter nal sourc e) Not Available chrissy - External Data Service - prod 14:35:50 04901 aluminum aspirin Not available Not available Not available high 06/04/20252023 611 RxNorm Sever e GI bleed unrec ogniz ed react ion (text : Other (See Comme nts), code: 19599 5006) (from exter [facility]) Not Available chrissy - External Data Service - prod 14:35:50 39283 ciproflox acin medicatio n Not available Not available Not available 06/04/20252018 2551 RxNorm Upset stoma ch unrec ogniz ed react ion (text : Other (See Comme nts), code: 53625 5006) (from exter [facility]) Not Available [facility] External Data Service - prod 14:35:50 58435 ibuprofen medicatio n Not available Not available [facility] 06/04/20252024 5640 RxNorm unrec ogniz ed react ion (text : .Unkn own, code: 57062 5006) (from exter [facility]) Not Available [facility] External Data Service - prod 14:35:50 44123 metoprolo l Not available myalgias (muscle pain) Not available Not available 06/04/20252020 6918 RxNorm Muscl e aches , sever e fatig ue Not Available chrissy - External Data Service - prod 14:35:50 31497 prednison e medicatio n Not available Not available [facility] 06/04/20252022 8640 RxNorm unrec ogniz ed react ion (text : GI Upset , code: 86093 005) (from exter [facility]) Not Available chrissy - External Data Service - prod 14:35:50 95729 tetracycl ine medicatio n Not available Not available Not available 06/04/20252018 11021 RxNorm unrec ogniz ed react ion (text : .Unkn own, code: 99013 5006) (from exter nal [facility] e) Not Available chrissy - External Data Service - prod 14:35:50 32160 tramadol medicatio n Not available Not available Not available 06/04/20252023 41330 RxNorm Behal margaritamorenita [facility] unrec nino ed react ion (text : .Unkn own, code: 79284 5006) (from [facility]) Not Available [facility] External Data Service - prod 14:35:50 31457 Product containin g penicilli n (product) medicatio n rash Not available low 06/04/20252024 44628 8001 SNOMED Not Available [facility] External Data Service - prod 14:36:11 Medications Name Sig Start Date Stop Date Status Note LastModified by Organization Details LastModified Time cefdinir 300 mg capsule TAKE 1 CAPSULE BY MOUTH TWICE DAILY FOR 10 DAYS 06/04 completed Not Available Not Available Not Available Vitals None Recorded Social History None recorded. Functional Status None recorded. Mental Status None recorded. Family History Nothing Reported. Medical History No medical history recorded. Gynecological HistoryNo gynecological history recorded. Obstetrics History GPAL:G 0 P 0 0 0 0 Immunizations Vaccine Type Date Status Note Provider Nam e and Address Organization Details Recorded Time Hep A-Hep B 04/22/2016 completed Not Available [facility] 06/04/2025 14:29:27 Hep A-Hep B 06/27/2016 completed Not Available [facility] 06/04/2025 14:29:27 zoster live 12/06/2016 completed Not Available [facility] 06/04/2025 14:29:27 Past Encounters Encounter ID Performer Location Encounter Start Date Encounter Closed Date Diagnosis/Indication Diagnosis SNOMED-CT Code Diagnosis ICD10 Code Diagnosis IMO Codes Diagnosis Note [id number] Irwin Freeman DO 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 (MEDICARE) Mila Hernández [id number] 4 Mila Hernández 06/04/2025 1 *SELF PAY* Pa rufus Hernández 06/04/2025 1 MEDICARE [place]: [place] Mila Hernández [id number] 4 Mila Hernández Notes Date Note Type Note Provider Name and Address Organization Details Recorded Time 06/04/2025 text/html DementiaReported by PatientHPIFor quality, patient reportsshort term memory loss. For severity, patient reportssevere. For duration, patient reports___ years.ROS as noted in the HPI new admit after hospital stay for therapy. With goal of returning home. Irwin Freeman, [address] [place] [address], [phone], [facility] - [facility] 06/08/2025 15:40:29 OBGyn Episode No OBEpisode recorded.
--- OUTSIDE RECORDS SUMMARY | 2025-06-24 17:57 | XMS_ITS | Clinical Summary ---
Author Organization [place] Address [address] [facility] [address] 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 Name Role Phone Unavailable Primary Care [...] Data STL ABSTRACTION Provider, Abstract 04/28/2025 Refill [facility] [address] [place] [address] Amber Dai NP 04/03/2025 Orders Only [facility] [place] [address] [place] [address] Rae Nettles RN 04/02/2025 2:00 PM CDT Office Visit [facility] [place] [facility] [address] [place] [address] Amber Dai NP Stress incontinence (Primary Dx) from Last 3 Months Family History Medical [...] on file Legal Sex Female 12:19 AM RECORD PRESSMAN Gender Identity Not on file Sexual Orientation Not on file Last Filed Vital Signs Vital Sign Reading Time Taken Comments Blood Pressure 130/80 08/24/2018 9:59 AM RECORD PRESSMAN Pulse 67 08/24/2018 9:59 AM RECORD PRESSMAN Temperature 36.7 C (98 F) 08/24/2018 9:59 AM RECORD PRESSMAN Respiratory Rate 20 04/26/2018 10:12 AM CDT Oxygen Saturation - - Inhaled Oxygen Concentration - - Weight 86.2 kg (190 lb) 08/24/2018 9:59 AM RECORD PRESSMAN Height 152.4 cm (5') 08/24/2018 9:59 AM RECORD PRESSMAN Body Mass Index 37.11 08/24/2018 9:59 AM RECORD PRESSMAN Plan of Treatment Upcoming Encounters Date Type Department Care Team (Late st Contact Info) Description 07/02/2025 2:30 PM RECORD PRESSMAN Office Visit [facility] [place] [address] [place] [address] Amber Dai NP [address] [place] [address] Health Maintenance Due Date Last Done Comments RSV VACCINE (60+ or ) (1 - 1-dose 75+ series) 2021 INFLUENZA VACCINE (#1) 2025 4, 04/12/2021, 04/28/2020, Additional history exists COVID-19 Vaccine [...] years Discontinued Medical Devices Implanted Type Area Assistant Business Manager Device Identifier Shelf Expiration Date Model / Serial / Lot Capsule Ph Testing Pratt [id number] - [id number] Implanted:Qty: 1 on 03/21/2017 by Jose G Man MD Other [employer] 12/19/2017 [id number] / / [id number] Description:ID# [id number] Procedures Procedure Name Priority Date/Time Associated Diagnosis Comments POC URINALYSIS DIPSTICK AUTOMATED Routine 04/02/2025 3:09 PM CDT ENDOSCOPY, COLON, SCREENING 03/21/2017 12:00 AM CDT XR DEXA BONE DENSITY AXIAL 1 OR MORE SITES Routine 09/08/2016 2:14 PM RECORD PRESSMAN Asymptomatic menopausal state Screening for osteoporosis from Last 3 Months or Most Recently Relevant to Health Maintenance Results * POC URINALYSIS DIPSTICK AUTOMATED (04/02/2025 3:09 PM CDT) COLOR UA Yellow Pale to Dark Yellow 04/02/2025 3:[address] [facility] CLAR[facility] UA Clear Clear 04/02/2025 3:[address] [facility] GLU[facility]A Negative Negative 04/02/2025 3:09 PM CDT [facility] BILIRUBIN UA Negative Negative 04/02/2025 3:09 PM CDT [facility] KETONES UA Negative Negative 04/02/2025 3:[address] [facility] [place] BLOOD UA Negative Negative 04/02/2025 3:[address] [facility]OLOG [place] PH UA 6.0 5.0 - 8.0 04/02/2025 3:09 PM CDT [facility] PROTEIN [facility]A Negative Negative 04/02/2025 3:09 PM CDT [facility] UROBILINOGEN UA 0.2 <2.0 mg/dL 3:[address] [facility] [place] NITRITE UA Negative Negative 04/02/2025 3:[address] [facility] LEUKOCYTE ESTERASE UA Negative Negative 04/02/2025 3:[address] [facility] SPECIFIC GRAVITY UA POC 1.015 1.000 - 1.030 04/02/2025 3:[address] [facility] Urine 04/02/2025 3:09 PM CDT 04/02/2025 3:12 PM CDT us Amber Dai NP POINT OF CARE TESTING Final Result [facility] [place] CLIA# [id number] [address] [place] [address], * ENDOSCOPY, COLON, SCREENING (03/21/2017 12:00 AM CDT) us Jose G Man MD GI PROCEDURE ORDERABLES Edited Result - Final * XR DEXA BONE DENSITY AXIAL 1 OR MORE SITES (09/08/2016 2:14 PM RECORD PRESSMAN) Anatomical Region Laterality Modality Other Narrative 09/08/2016 2:18 PM RECORD PRESSMAN PROCEDURE: XR DEXA BONE DENSITY AXIAL 1 [...] Maintenance Insurance MEDICARE PART A AND [facility] [id number]
--- OUTSIDE RECORDS SUMMARY | 2025-06-24 17:57 | XMS_ITS | Continuity of Care Document ---
Author Organization [facility] Rakesh Craw[facility], LRafitaLMena, [facility] ([facility]) Address [address] [place] [address] Assessment No assessment recorded. Plan of Treatment [...] By Organization Details Last Modified Time 06/04/2025 [id number] hospital records reviewed goal to get therapy and return home; no acute issues today; improving [email or web address] Not available 06/08/2025 15:40:14 Reason for Referral None Reported. Medical Equipment None Reported. Allergies Allergen ID Allergen Name Allergen Category Reaction Reaction Severity Criticality Documentation Date Start Date Code Code System Note Provider Name and Address Organization Details Recorded Time 51345 amlodipin e medicatio n Not available Not available Not available 06/04/20252022 18132 RxNorm Repor brielle by [facility] unrec ogniz ed react ion (text : Other (See Comme nts), code: 47813 5006) (from exter nal sourc e) Not Available chrissy - External Data Service - prod 14:35:50 96466 ampicilli n medicatio n Not available Not available Not available 06/04/20252018 733 RxNorm unrec ogniz ed react ion (text : .Unkn own, code: 79164 5006) (from exter nal sour e) Not Available chrissy - External Data Service - prod 11/19/202 5 14:35:50 53287 aluminum aspirin Not available Not available Not available high 06/04/20252023 611 RxNorm Sever e GI bleed unrec ogniz ed react ion (text : Other (See Comme nts), code: 07918 5006) (from exter [facility]) Not Available chrissy - External Data Service - prod 14:35:50 19484 ciproflox acin medicatio n Not available Not available Not available 06/04/20252018 2551 RxNorm Upset stoma ch unrec ogniz ed react ion (text : Other (See Comme nts), code: 03649 5006) [facility] Not Available chrissy - External Data Service - prod 14:35:50 77372 ibuprofen medicatio n Not available Not available [facility] 06/04/20252024 5640 RxNorm unrec ogniz ed react ion (text : .Unkn own, code: 66230 5006) (from exter [facility]) Not Available [facility] External Data Service - prod 14:35:50 30242 metoprolo l Not available myalgias (muscle pain) Not available Not available 06/04/20252020 6918 RxNorm Muscl e aches , sever e fatig ue Not Available chrissy - External Data Service - prod 14:35:50 14447 prednison e medicatio n Not available Not available [facility] 06/04/20252022 8640 RxNorm unrec ogniz ed react ion (text : GI Upset , code: 29033 005) (from exter [facility]) Not Available chrissy - External Data Service - prod 14:35:50 18985 tetracycl ine medicatio n Not available Not available Not available 06/04/20252018 49335 RxNorm unrec ogniz ed react ion (text : .Unkn own, code: 46866 5006) (from [facility]ter [facility]) Not Available chrissy - External Data Service - prod 14:35:50 97711 tramadol medicatio n Not available Not available Not available 06/04/20252023 08231 RxNorm Behal marcio del cid rns unrec nino ed react ion (text : .Unkn own, code: 02597 5006) (from [facility]) Not Available [facility] External Data Service - prod 14:35:50 67651 Product containin g penicilli n (product) medicatio n rash Not available low 06/04/20252024 61291 8001 SNOMED Not Available [facility] External Data Service - prod 14:36:11 Medications [...] Hep A-Hep B 04/22/2016 completed Not Available [facility] 06/04/2025 14:29:27 Hep A-Hep B 06/27/2016 completed Not Available [facility] 06/04/2025 14:29:27 zoster live 12/06/2016 completed Not Available [facility] 06/04/2025 14:29:27 Past Encounters Encounter ID Performer Location Encounter Start Date Encounter Closed Date Diagnosis/Indication Diagnosis SNOMED-CT Code Diagnosis ICD10 Code Diagnosis IMO Codes Diagnosis Note [id number] Irwin Freeman DO [facility] ([facility]) [address] [place] [address] 06/04/2025 14:28:56 06/09/2025 08:30:06 Post-discharge follow-up [id number] Z09 278874 Acute kidney injury 1466 9001 N17.9 408418 Dehydration 22573670 E86 .0 9786 Moderate r ecurrent major depression 17232127 F33.1 1055090 Gastroesop hageal reflux disease without esophagitis 788857664 K21.9 837779 Senile dementia 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 For severity, patient reportssevere. For duration, patient reports___ years.ROS as noted in the HPI new admit after hospital stay for therapy. With goal of returning home. Irwin Freeman DO [address] [place] [address], [phone], [facility] 06/08/2025 15:40:29 OBGyn Episode No OBEpisode recorded.
[2025-06-24] MEDS: cefTRIAXone 1,000 mg SDV 1000 MG IVP (18:00)
--- NOTE | 2025-06-24 18:05 | P.HP_ITS ---
Providers/Chief Complaint 2 Admitting Physician: Dr. Dinesh Haile Primary Care Provider: Alfonso Moreno MD Chief Complaint: ams History of Present Illness Mila Hernández is a 80 year old female with a past medical history of recurrent UTI, chronic kidney disease stage III, dementia, depression, GERD, hypertension, chronic congestive heart failure, and hyperlipidemia seen in the ER with altered mental status by provider . Patient was found to have volume depletion and UTI. Patient had recently been and SNF facility and was discharged this prior Monday with much improved disposition. Baseline mental status. On examination patient seems to be at her baseline mental status, family states that she does not wipe well and keeps getting these UTIs. Patient does have mildly elevated creatinine above her baseline, will admit to observation for continued IV fluid hydration and IV antibiotic therapy. Patient denies current chest pain, shortness of breath, nausea, vomiting, diarrhea, abdominal pain, dark or tarry stools, any type of bleeding, or syncope. Patient's daughter at the bedside stating that the patient does not readily drink enough fluids has to be instructed and encouraged to drink fluids. Both the patient and her daughter are agreeable to observation admission, all questions and concerns addressed at the bedside today. Review of Systems 2 General: Reports: 10 or more systems reviewed and unremarkable except in HPI and below Medications/Allergies Home Medications ?Medication ?Instructions ?Recorded ?Confirmed ?Last Taken ?Type acetaminophen 325 mg tablet 325 mg PO QID PRN Pain 10/0805/31/25 Unknown History (Tylenol) carvedilol 25 mg tablet 37.5 mg PO BID 01/16/2505/1705/31/25 08:00 History ferrous sulfate 325 mg (65 mg 325 mg PO EVERY OTHER DA Y 01/16/25 05/31/25 05/31/25 08:00 History iron) tablet furosemide 20 mg tablet (Lasix) 20 mg PO DAILY PRN Isidro ma 01/16/25 05/31/25 Unknown History spironolactone 25 mg tablet 12.5 mg PO DAILY 01/16/25 05/31/25 05/31/25 08:00 History Held on 06/03/25. Instructions: Resume on 06/17/25. Reviewed with primary care provider before resuming melatonin 1 mg disintegrating 0.5 mg PO BEDTIME 05/31/25 05/30/25 20:00 History tablet nitroglycerin 0.4 mg sublingual 0.4 mg sublingual Q5M PRN chest 04/15/25 05/31/25 Unknown Rx tablet pain #20 tabs cetirizine 10 mg tablet (Zyrtec) 10 mg PO DAILY PRN al lergies 04/28/25 05/31/25 Unknown History escitalopram oxalate 10 mg tablet 20 mg (2 x 10 mg) PO DAILY #90 tabs 04/28/25 05/31/25 05/31/25 08:00 Rx (Lexapro) omeprazole 40 mg capsule,delayed 40 mg PO BID #60 caps 04/28/25 05/31/25 05/31/25 08:00 Rx release vancomycin 125 mg capsule 125 mg PO Q6H 10 days #40 ca ps 05/25/25 05/31/25 05/31/25 08:00 Rx memantine 10 mg tablet (Namenda) See Rx Instructions P O BID #60 tabs 05/29/25 05/31/25 05/31/25 08:00 Rx losartan 100 mg tablet 100 mg PO DAILY 05/31/2505/31/25 08:00 History Allergies Allergy/AdvReac Type Severity Reaction Status Date / Time Penicillins Allergy Unknown Verified 05/29/25 08:40 PFSH Acute 2 PFSH: Medical History (Updated 06/24/25 @ 18:14 by Cheryl Castro NP) Precordial pain Nodule of kidney Moderate major depression Nephrolithiasis CKD stage 3b, GFR 30-44 ml/min GERD (gastroesophageal reflux disease) Osteoporosis Hypothyroid Izaguirre esophagus Hiatal hernia Arthritis Hypertension Chronic congestive heart failure, unspecified heart failure type Hyperlipemia Surgical History History of right ankle joint replacement Hx of total knee replacement Hx of rotator cuff surgery Family History Father Cancer Hypertension Mother Heart disease Hypertension Sister Hypertension Social History Smoking and tobacco/nicotine status: never used tobacco/nicotine Alcohol intake: former Substance/Drug Use: never Vitals/I&O/Wt Last Vital Signs Temp 98.8 F 06/24/25 15:09 Pulse 69 06/24/25 15:24 Resp 16 06/24/25 15:09 BP 149/97 06/24/25 15:24 Pulse Ox 94 06/24/25 15:24 O2 Del Method Room Air 06/24/25 15:09 06/24/25 06/24/25 06/24/25 06:59 14:59 22:59 Intake Total 200 / 200 Balance 200 / 200 Weight last 48 hrs Weight 85.729 kg Physical Exam 2 Const: COMMON NORMALS: no acute distress, average body habitus and alert O RIENTATION/CONSCIOUSNESS: Yes oriented to person OTHER: Patient is orientated x 3 HENMT: COMMON NORMALS: normocephalic, Normal external nose present and moist oral mucous membranes HEAD & SCALP: normocephalic NOSE: Normal external nose present Eye: COMMON NORMALS: Equal, round and reactive pupils present PUPIL: Yes Equal, round and reactive pupils present Neck/C-Spine: COMMON NORMALS: no JVD Resp: COMMON NORMALS: normal respiratory effort, No retractions and clear to auscultation bilaterally AUSCULTATION: clear to auscultation bilaterally Cardio: COMMON NORMALS: no JVD, regular rhythm, S1 normal heart sound present and S2 normal heart sound present RHYTHM: regular rhythm HEART SOUNDS: S1 normal heart sound present and S2 normal heart sound present GI: COMMON NORMALS: Normal to inspection, nondistended, normoactive bowel sounds present Extremity: COMMON NORMALS: normal to inspection and full ROM Neuro: SENSORIUM/ORIENTATION: Yes alert, Yes oriented to person, Yes Orientation impaired and Yes other (Generalized weakness) Psych: COMMON NORMALS: cooperative and speech normal SPEECH: Yes normal speech JUDGEMENT: Fair judgement present (Psych) Skin: COMMON NORMALS: no rashes or lesions noted and turgor normal GENERAL SKIN EXAM: no rashes or lesions noted and turgor normal Data 06/24/25 14:46 06/24/25 14:46 Micro: Microbiology 06/24/25 17:44 Blood Culture - Preliminary Blood SPECIMEN COLLECTED 06/24/25 17:42 Blood Culture - Preliminary Blood SPECIMEN COLLECTED A&P Assessment and plan 1. Acute UTI: 2. Dementia: 3. TETE (acute kidney injury): 4. Memory impairment: 5. Moderate major depression: 6. GERD (gastroesophageal reflux disease): 7. Hypertension: 8. Chronic congestive heart failure, unspecified heart failure type: 9. Hyperlipemia: Plan: Acute UTI, POA - Patient has recurrent UTI's - Initiated on IV rocephin 1g q 24hr - Urine Cultures Pending TETE on CKD-III - Admitting Cr 2.0, baseline 1.7 - Renally dose medications, avoid nephrotoxic agents - IV normal saline 100 mL/hr - Monitor Documented history of iron deficiency anemia - Continue Ferrous Sulfate Documented history of CHF, last ejection fraction from February 2025 is 60-65%. - Strict I/O. - Daily weight GERD - Continue PPI Hyperlipidemia - Not currently on statin Hypertension - Continue home dosing Coreg, Losartan Obesity - The patient will be counseled regarding lifestyle medication - BMI 38.2 Dementia - Continue home dosing Memantine - Continue outpatient management per primary care provider Anxiety/Depression - Supportive measures - Continue Lexapro Insomnia - Melatonin 3mg PO HS DVT PPX: Bilateral SCD GI PPX: PPI Code Status: Limited Resuscitation PDMP PDMP Reviewed: Last Reviewed 06/24/25 18:21 by Cheryl Castro, PHOTOVOLTAIC FABRICATION TECHNICIAN Attestations 2 Medical Necessity Statement*: Patient will require observation admission not requiring 2 midnights, acute UTI and volume depletion with TETE, continued IV fluid hydration and antibiotics, complex medical management. Coding Level of Care Code 17410 Diagnoses Acute UTI N39.0 Dementia F03.90 TETE (acute kidney injury) N17.9 Memory impairment R41.3 Moderate major depression F32.1 GERD (gastroesophageal reflux disease) K21.9 Hypertension I10 Chronic congestive heart failure, unspecified heart failure type I50.9 Heart failure chronicity: chronic Heart failure type: unspecified Hyperlipemia E78.5
[2025-06-24 18:13] LABS: Lactic Sepsis W/Reflex 0.9 mmol/L (0.5-2.2)
--- OUTSIDE RECORDS SUMMARY | 2025-06-25 00:34 | XMS_ITS | Clinical Summary ---
Author Organization [facility] Address [address] Herrera: Epic Prelude ADT JEY BALDWIN [address] Care Team Providers Care Director Of Psychiatry Name Role Phone Unavailable Primary Care Provider [...] Data STL ABSTRACTION Provider, Abstract 04/28/2025 Refill [facility] [place] [facility] [address] [place] [address] Amber Dai NP 04/03/2025 Orders Only [facility] [place] [address] [place] [address] Rae Nettles RN 04/02/2025 2:00 PM CDT Office Visit [facility] [place] [facility] [address] [place] [address] Amber Dai NP Stress incontinence (Primary Dx) [...] on file Legal Sex Female 12:19 AM [employer] Gender Identity Not on file Sexual Orientation Not on file Last Filed Vital Signs Vital Sign Reading Time Taken Comments Blood Pressure 130/80 08/24/2018 9:59 AM [employer] Pulse 67 08/24/2018 9:59 AM [employer] Temperature 36.7 C (98 F) 08/24/2018 9:59 AM [employer] Respiratory Rate 20 04/26/2018 10:12 AM CDT Oxygen Saturation - - Inhaled Oxygen Concentration - - Weight 86.2 kg (190 lb) 08/24/2018 9:59 AM [employer] Height 152.4 cm (5') 08/24/2018 9:59 AM [employer] Body Mass Index 37.11 08/24/2018 9:59 AM [employer] Plan of Treatment Upcoming Encounters Date Type Department Care Team (Late st Contact Info) Description 07/02/2025 2:30 PM [employer] Office Visit [facility] [place] [address] [place] [address] Amber Dai NP [address] [place] [address] Health Maintenance Due Date Last [...] years Discontinued Medical Devices Implanted Type [employer] Device Identifier Shelf Expiration Date Model / Serial / Lot Capsule Ph Testing Pratt [id number] - [id number] Implanted:Qty: 1 on 03/21/2017 by Jose G Man MD Other [employer] 12/19/2017 [id number] / / [id number] Description:ID# [id number] Procedures Procedure Name Priority Date/Time Associated Diagnosis Comments POC URINALYSIS DIPSTICK AUTOMATED Routine 04/02/2025 3:09 PM CDT ENDOSCOPY, COLON, SCREENING 03/21/2017 12:00 AM CDT XR DEXA BONE DENSITY AXIAL 1 OR MORE SITES Routine 09/08/2016 2:14 PM [employer] Asymptomatic menopausal state Screening for osteoporosis from Last 3 Months or Most Recently Relevant to Health Maintenance Results * POC URINALYSIS DIPSTICK AUTOMATED (04/02/2025 3:09 PM CDT) COLOR UA Yellow Pale to Dark Yellow 04/02/2025 3:09 PM CDT [facility] UA Clear Clear 04/02/2025 3:09 PM CDT [facility]A Negative Negative 04/02/2025 3:09 PM CDT [facility] UA Negative Negative 04/02/2025 3:09 PM CDT [facility] UA Negative Negative 04/02/2025 3:09 PM CDT [facility] [place] BLOOD UA Negative Negative 04/02/2025 3:09 PM CDT [facility] [place] PH UA 6.0 5.0 - 8.0 04/02/2025 3:09 PM CDT [facility] PROTEIN UA Negative Negative 04/02/2025 3:09 PM CDT [facility] UROBILINOGEN UA 0.2 <2.0 mg/dL 3:09 PM CDT [facility] [place] NITRITE UA Negative Negative 04/02/2025 3:09 PM CDT [facility] UR[facility] LEUKOCYTE ESTERASE UA Negative Negative 04/02/2025 3:09 PM CDT [facility] SPECIFIC GRAVITY UA POC 1.015 1.000 - 1.030 04/02/2025 3:09 PM CDT [facility] Urine 04/02/2025 3:09 PM CDT 04/02/2025 3:12 PM CDT us Amber Dai NP POINT OF CARE TESTING Final Result [facility] [place] [place] CLIA# [id number] [address] [place] [id number], * ENDOSCOPY, COLON, SCREENING (03/21/2017 12:00 AM CDT) us Jose G Man MD GI PROCEDURE ORDERABLES Edited Result - Final * XR DEXA BONE DENSITY AXIAL 1 OR MORE SITES (09/08/2016 2:14 PM [employer]) Anatomical Region Laterality Modality Other Narrative 09/08/2016 2:18 PM [employer] PROCEDURE: XR DEXA BONE DENSITY AXIAL 1 [...] Maintenance Insurance MEDICARE PART A AND B [facility] [id number]
[2025-06-25 00:43] VITALS: BMI 38.1
[2025-06-25 02:04] VITALS: BMI 38.1
[2025-06-25 04:00] VITALS: BP 171/90; PULSE 91; RESP 18; TEMP 36.7; O2SAT 97
[2025-06-25 06:00] VITALS: PULSE 66
[2025-06-25 06:12] LABS: Hematocrit 37.2 % (36-47); Hemoglobin 11.70 g/dL (11.27-16.99); Mean Corpuscular HGB Conc 31.5 g/dL (30-55); Mean Corpuscular Hemoglobin 29.5 pg (27-33); Mean Corpuscular Volume 93.9 fl (85-98); Nucleated Red Blood Cells % 0 %; Platelet Count 215 10^3/cmm (157-399); Red Blood Count 3.96 10^6/uL (3.85-5.65); White Blood Count 7.53 10^3/uL (3.29-11.43)
[2025-06-25 06:32] LABS: Alanine Aminotransferase 10 U/L (0-33); Albumin Level 3.3 g/dL (3.5-5.2); Alkaline Phosphatase 84 U/L (35-105); Anion Gap 12.7 (5-19); Aspartate Amino Transferase 13 U/L (0-32); Blood Urea Nitrogen 32 mg/dL (8-23); Calcium 8.7 mg/dL (8.5-10.5); Carbon Dioxide 24 mmol/L (22-29); Chloride 105 mmol/L (98-107); Globulin 2.6 g/dL (1.3-4.6); Glucose 95 mg/dL (65-115); Osmolality Calculated 293 mOsm/kg (285-295); Potassium 3.7 mmol/L (3.5-5.1); Sodium 138 mmol/L (136-145); Total Protein 5.9 g/dL (6.6-8.7)
[2025-06-25 07:18] VITALS: BP 153/90; PULSE 68; RESP 16; TEMP 36.4; O2SAT 93
--- NOTE | 2025-06-25 09:25 | PC.CHAP ---
Pastoral Care Encounter/Spiritual Assessment Type of Contact [] Declined manager of case visit [] Patient/Family/Request visit [] Outpatient visit [] Follow-up visit [] Physician referral [] Code/Alert [] Routine visit [] Staff referral [] Actively dying [] Patient sleeping [] Family support [] [] Out of room [] Palliative care [] [x] Receiving care in room [] Pre-surgical visit [] Trauma [] Long length of stay [] ICU visit [] Other: Relational/Emotional Strength [] Patient feels connected with others/family/visitors/staff [] Distress [] Loneliness/isolation [] Abandonment Spirituality of Patient [] Person of Sharmin [] Attends Voodoo of their Sharmin [] Believes in Prayer [] Reads Bible or Yarsani materials [] There are Spiritual issues to be addressed Crap Shooter Interventions [] Prayer [] Active listening [] Non-anxious presence [] Spiritual/emotional support [] Crisis/trauma care [] Spiritual counseling [] Bereavement support [] Provided bereavement packet [] Provided Bible/devotional materials [] Provided toy/stuffed animal, coloring book to patient or family member [] Provided Communion [] Anointing/[place] [] Salvation [] Completed spiritual assessment [] Other: Impact on Illness or Injury [] Angry [] Fearful [] Anxious [] Often cries [] Exhaustion [] Unable to work [] Unable to attend adventist [] Unable to walk/stand [] Unable to read [] Unable to drive [] Unable to eat/drink [] Unable to sleep [] Unable to be with family [] Patient intubated [] Other: Summary Time spent with patient
--- NOTE | 2025-06-25 09:26 | PC.PHAR ---
carvedilol dosage changed to 12.5mg tid. New order not picked up at the pharmacy yet. Losartan potassium was dc'd and replaced with plain Losartan 100mg daily 06/21/25-not picked up yet. Verified with VIRGILIO Guerrero
--- NOTE | 2025-06-25 09:50 | PM.DCS ---
Discharge Providers Date of Admission: 06/24/25 17:13 Date of Discharge: June 25, 2025 Attending Provider at Admission: Dinesh Haile MD Attending Provider at Discharge: Cheryl Castro NP Primary Care Provider: Alfonso Moreno MD Diagnoses at Discharge Discharge Diagnosis 1. Acute UTI: 2. Dementia: 3. TETE (acute kidney injury): 4. Memory impairment: 5. Moderate major depression: 6. GERD (gastroesophageal reflux disease): 7. Hypertension: 8. Chronic congestive heart failure, unspecified heart failure type: 9. Hyperlipemia: Reason for Visit Reason for Visit: ams Brief History: Admission: Mila Hernández is a 80 year old female with a past medical history of recurrent UTI, chronic kidney disease stage III, dementia, depression, GERD, hypertension, chronic congestive heart failure, and hyperlipidemia seen in the ER with altered mental status by provider . Patient was found to have volume depletion and UTI. Patient had recently been and SNF facility and was discharged this prior Monday with much improved disposition. Baseline mental status. On examination patient seems to be at her baseline mental status, family states that she does not wipe well and keeps getting these UTIs. Patient does have mildly elevated creatinine above her baseline, will admit to observation for continued IV fluid hydration and IV antibiotic therapy. Patient denies current chest pain, shortness of breath, nausea, vomiting, diarrhea, abdominal pain, dark or tarry stools, any type of bleeding, or syncope. Patient's daughter at the bedside stating that the patient does not readily drink enough fluids has to be instructed and encouraged to drink fluids. Both the patient and her daughter are agreeable to observation admission, all questions and concerns addressed at the bedside today. Hospital Course Hospital Course Acute UTI, POA - Patient has recurrent UTI's - Initiated on IV rocephin 1g q 24hr, transition to oral nitrofurantoin at discharge - Urine Cultures Pending, will need outpatient follow-up with primary care provider - Will follow-up with urology within 2 weeks of discharge TETE on CKD-III - Admitting Cr 2.0, baseline 1.7, creatinine now 1.7 at discharge - Renally dose medications, avoid nephrotoxic agents - IV normal saline 100 mL/hr given, encouraged good oral intake of fluids on discharge - Monitor Documented history of iron deficiency anemia - Continue Ferrous Sulfate Documented history of CHF, last ejection fraction from February 2025 is 60-65%. - Strict I/O. - Daily weight GERD - Continue PPI Hyperlipidemia - Not currently on statin Hypertension - Continue home dosing Coreg, Losartan Obesity - The patient will be counseled regarding lifestyle medication - BMI 38.2 Dementia - Continue home dosing Memantine - Continue outpatient management per primary care provider Anxiety/Depression - Supportive measures - Continue Lexapro Insomnia - Melatonin 3mg PO HS DVT PPX: Bilateral SCD GI PPX: PPI Code Status: Limited Resuscitation Discharge: Patient discharge is in stable condition ANO x 3 in care of daughter. Advised good oral intake of fluids minimum of 1.5 L/day. Patient is recommended outpatient follow-up with primary care provider in 1 to 2 days and urology within 2 weeks of discharge. Patient discharges with oral nitrofurantoin for treatment of UTI, depending on urine cultures we will mahi antibiotics appropriately. Patient also discharges with as needed hydralazine for elevated blood pressures, advised blood pressure log and follow-up with primary care provider for continued outpatient management. All questions and concerns addressed the patient and her daughter at time of discharge. Physical Exam Const: COMMON NORMALS: no acute distress, average body habitus and alert ORIENTATION/CONSCIOUSNESS: Yes oriented to person OTHER: Patient is orientated x 3 HENMT: COMMON NORMALS: normocephalic, Normal external nose present and moist oral mucous membranes HEAD & SCALP: normocephalic NOSE: Normal external nose present Eye: COMMON NORMALS: Equal, round and reactive pupils present PUPIL: Yes Equal, round and reactive pupils present Neck/C-Spine: COMMON NORMALS: no JVD Resp: COMMON NORMALS: normal respiratory effort, No retractions and clear to auscultation bilaterally AUSCULTATION: clear to auscultation bilaterally Cardio: COMMON NORMALS: no JVD, regular rhythm, S1 normal heart sound present and S2 normal heart sound present RHYTHM: regular rhythm HEART SOUNDS: S1 normal heart sound present and S2 normal heart sound present GI: COMMON NORMALS: Normal to inspection, nondistended, normoactive bowel sounds present Extremity: COMMON NORMALS: normal to inspection and full ROM Neuro: SENSORIUM/ORIENTATION: Yes alert, Yes oriented to person, Yes Orientation impaired and Yes other (Generalized weakness) Psych: COMMON NORMALS: cooperative and speech normal SPEECH: Yes normal speech JUDGEMENT: Fair judgement present (Psych) Skin: COMMON NORMALS: no rashes or lesions noted and turgor normal GENERAL SKIN EXAM: no rashes or lesions noted and turgor normal Discharge Data Studies Completed and Pending Completed Studies During Hospitalization Category Date Time Status CT head wo con* [id number] Stat Cat Scan 06/24/25 17:06 Completed XR chest 1V portable [id number] Stat Exams 06/24/25 14:58 Completed Pending at discharge Category Date Time Status Blood Culture Stat Lab 06/24/25 17:44 Results Urine Culture Stat Lab 06/24/25 16:01 Received Radiology Impressions Chest X-Ray 06/24/25 14:58 IMPRESSION: Cardiomegaly. Stable chest with no acute abnormality. Head CT 06/24/25 17:06 IMPRESSION: 1. No acute hemorrhage, edema, or mass effect. 2. Extensive chronic microvascular ischemic changes. 3. Generalized age-related cerebral volume loss Laboratory Results WBC 7.53 10^3/uL (3.29-11.43) 06/25/25 06:01 RBC 3.96 10^6/uL (3.85-5.65) 06/25/25 06:01 Hgb 11.70 g/dL (11.27-16.99) 06/25/25 06:01 Hct 37.2 % (36-47) 06/25/25 06:01 MCV 93.9 fl (85-98) 06/25/25 06:01 MCH 29.5 pg (27-33) 06/25/25 06:01 MCHC 31.5 g/dL (30-55) 06/25/25 06:01 RDW 14.4 % (12.1-15.1) 06/25/25 06:01 Plt Count 215 10^3/cmm (157-399) 06/25/25 06:01 MPV 9.7 fL (7.4-10.4) 06/25/25 06:01 Neut % (Auto) 70.5 % 06/25/25 06:01 Lymph % (Auto) 9.8 % 06/25/25 06:01 Edmunds % (Auto) 14.5 % 06/25/25 06:01 Eos % (Auto) 4.1 % 06/25/25 06:01 Baso % (Auto) 0.8 % 06/25/25 06:01 Neut # (Auto) 5.31 10^3/uL (1.8-7.7) 06/25/25 06:01 Lymph # (Auto) 0.7 10^3/uL (0.8-4.8) L 06/25/25 06:01 Edmunds # (Auto) 1.1 10^3/uL (0.2-0.9) H 06/25/25 06:01 Eos # (Auto) 0.3 10^3/uL (0.0-0.8) 06/25/25 06:01 Baso # (Auto) 0.1 10^3/uL (0.0-0.1) 06/25/25 06:01 Nucleated RBC % (auto) 0 % 06/25/25 06:01 Nucleated RBCs # 0.0 /100WBC 06/25/25 06:01 Sodium 138 mmol/L (136-145) 06/25/25 06:01 Potassium 3.7 mmol/L (3.5-5.1) 06/25/25 06:01 Chloride 105 mmol/L (98-107) 06/25/25 06:01 Carbon Dioxide 24 mmol/L (22-29) 06/25/25 06:01 Anion Gap 12.7 (5-19) 06/25/25 06:01 BUN 32 mg/dL (8-23) H 06/25/25 06:01 Creatinine 1.7 mg/dL (0.5-0.9) H 06/25/25 06:01 GFR Calculation Not Reportable 06/25/25 06:01 Glucose 95 mg/dL (65-115) 06/25/25 06:01 Calculated Osmolality 293 mOsm/kg (285-295) 06/25/25 06:01 Lactic Acid 0.9 mmol/L (0.5-2.2) 06/24/25 17:42 Calcium 8.7 mg/dL (8.5-10.5) 06/25/25 06:01 Total Bilirubin 0.2 mg/dL (0.15-1.2) 06/25/25 06:01 AST 13 U/L (0-32) 06/25/25 06:01 ALT 10 U/L (0-33) 06/25/25 06:01 Alkaline Phosphatase 84 U/L (35-105) 06/25/25 06:01 Total Protein 5.9 g/dL (6.6-8.7) L 06/25/25 06:01 Albumin 3.3 g/dL (3.5-5.2) L 06/25/25 06:01 Globulin 2.6 g/dL (1.3-4.6) 06/25/25 06:01 Urine Color Yellow (Yellow) 06/24/25 16:01 Urine Appearance Turbid (CLEAR) A 06/24/25 16:01 Urine pH 6.5 (5-7) 06/24/25 16:01 Ur Specific [place] 1.016 (1.005-1.030) 06/24/25 16:01 Urine Protein 3+ (Negative) A 06/24/25 16: Urine Glucose (UA) Negative (Normal) 06/24/25 16: Urine Ketones Negative (Negative) 06/24/25 16:01 Urine Blood 3+ (Negative) A 06/24/25 16: Urine Nitrate Negative (Negative) 06/24/25 16: Urine Bilirubin Negative (Negative) 06/24/25 16:01 Urine Urobilinogen 1.0 mg/dL (Negative) 06/24/25 16:01 Ur Leukocyte Esterase 3+ (Negative) A 06/24/25 16:01 Urine RBC 51-100 /hpf (0-2) H 06/24/25 16:01 Urine WBC >100 /hpf (0-5) H 06/24/25 16:01 Ur Squamous Epith Cells 0-5 /hpf (0-5) 06/24/25 16:01 Amorphous Sediment Not Reportable 06/24/25 16:01 Urine Bacteria 4+ /hpf (NONE) H 06/24/25 16:01 Hyaline Casts 37.46 /lpf 06/24/25 16:01 Vitals Last Vital Signs Temp 97.6 F 06/25/25 07:18 Pulse 68 06/25/25 07:18 Resp 16 06/25/25 07:18 BP 153/90 06/25/25 07:18 Pulse Ox 93 06/25/25 07:18 O2 Del Method Room Air 06/25/25 07:18 Discharge Plan Discharge Patient Disposition: Home Health Service Condition: Stable Prescriptions: New hydralazine 10 mg tablet 10 mg PO BID Qty: 20 0RF nitrofurantoin monohyd/m-cryst 100 mg capsule 100 mg PO BID 7 Days Qty: 14 1RF Rx Instructions: must administer with a meal/food Continued melatonin 1 mg tablet,disintegrating 0.5 mg PO BEDTIME nitroglycerin 0.4 mg tablet, sublingual 0.4 mg sublingual Q5M PRN (Reason: chest pain) Qty: 20 1RF Rx Instructions: do not exceed [address] under tongue carvedilol 25 mg tablet 37.5 mg PO BID Rx Instructions: must administer with a meal/food spironolactone 25 mg tablet 12.5 mg PO DAILY acetaminophen [Tylenol] 325 mg tablet 325 mg PO QID PRN (Reason: Pain) ferrous sulfate 325 mg (65 mg iron) tablet 325 mg PO EVERY OTHER DAY furosemide [Lasix] 20 mg tablet 20 mg PO DAILY PRN (Reason: Edema) cetirizine [Zyrtec] 10 mg tablet 10 mg PO DAILY PRN (Reason: allergies) omeprazole 40 mg capsule,delayed release(DR/EC) 40 mg PO BID Qty: 60 1RF losartan 100 mg tablet 100 mg PO DAILY escitalopram oxalate 20 mg tablet 20 mg PO DAILY memantine 10 mg tablet 10 mg PO BID trospium 20 mg tablet 20 mg PO BID Discontinued carvedilol 12.5 mg tablet 12.5 mg PO TID Discharge Order = DC NOW: Discharge Order (Routine); Ordered 06/25/25 Ordered By: Cheryl Castro Referrals: Alfonso Moreno MD [Primary Care Provider, [facility]] - 1-3 days Discharge Diet: Cardiac Discharge Activity: Resume usual activity Patient Instructions: Altered Mental Status (ED), Opioid Safety, Patient Portal & Armando Instructions Discharge Attestations Time Spent in Discharge Care*: greater than 30 min Quality Metrics Clinical Quality Measures [ No reported AMI, CVA or VTE this stay] Coding Level of Care Code 08508 Diagnoses Acute UTI N39.0 Dementia F03.90 TETE (acute kidney injury) N17.9 Memory impairment R41.3 Moderate major depression F32.1 GERD (gastroesophageal reflux disease) K21.9 Hypertension I10 Chronic congestive heart failure, unspecified heart failure type I50.9 Heart failure chronicity: chronic Heart failure type: unspecified Hyperlipemia E78.5
--- NOTE | 2025-06-25 10:15 | PC.NURSE ---
Discharge delayed. Per Cheryl, administering IV fluids until 1200
[2025-06-25 11:06] VITALS: BP 153/88; PULSE 60; RESP 16; TEMP 36.5; O2SAT 93
[2025-06-25 12:34] VITALS: BP 153/88; PULSE 60; RESP 16; TEMP 36.5; O2SAT 93
== END 2025-06-25 12:35 | disposition home health service (06) ==
LOC: ER 19:16 → MEDSURG 21:49
PROVIDERS: Admitting Provider Student in an Organized Health Care Education/Training Program; Emergency Provider Family Medicine; PCP Family Medicine; Visit Provider Registered Nurse
DX: N39.0 Urinary tract infection, site not specified (principal); F03.90 Unspecified dementia, unspecified severity, without behavioral disturbance, psychotic disturbance, mood disturbance, and anxiety; N17.9 Acute kidney failure, unspecified; R41.3 Other amnesia; F32.1 Major depressive disorder, single episode, moderate; K21.9 Gastro-esophageal reflux disease without esophagitis; E78.5 Hyperlipidemia, unspecified; E66.9 Obesity, unspecified; Z68.38 Body mass index [BMI] 38.0-38.9, adult; I13.0 Hypertensive heart and chronic kidney disease with heart failure and stage 1 through stage 4 chronic kidney disease, or unspecified chronic kidney disease; N18.32 Chronic kidney disease, stage 3b; I50.9 Heart failure, unspecified; E03.9 Hypothyroidism, unspecified; F32.9 Major depressive disorder, single episode, unspecified; Z80.9 Family history of malignant neoplasm, unspecified
CPT/HCPCS: 36415; 70450; 71045; 80053; 81001; 83605; 85025; 87040; 87077; 87086; 87186; 93005; 96361; 96372; 96374; 96375; 99285; G0378; J0696; J1650; J7030